=== PATIENT | female | born 1960 | race African-American/Black ===

== ENCOUNTER 2017-12-13 11:53 | Emergency (ER) | payer MEDICAID, OTHER ==
--- NOTE | 2017-12-13 12:08 | ER Document Report ---
ED Medical Screen (RME) - General Chief Complaint: Suicidal Ideation Stated Complaint: SI Time Seen by Provider: 12/13/17 12:07 Mode of Arrival: Ambulatory Information source: Patient Notes: This is a 57-year-old female with a history of bipolar affective disorder/ schizophrenia who presents to the emergency room with depression, thoughts of wanting to hurt herself, lack of energy. Patient's medicines include Risperdal , Benadryl and trazodone. She is a 2 pack per day smoker. She denies a specific plan. TRAVEL OUTSIDE OF THE [place] IN LAST 30 DAYS: No - Related Data Allergies/Adverse Reactions: paliperidone [From Invega] Allergy (Verified 12/13/17 12:02) Past Medical History - Social History Chew tobacco use (# tins/day): No Frequency of alcohol use: Social Drug Abuse: None Renal/ Medical History: Denies: Hx Peritoneal Dialysis Psychiatric Medical History: Reports: Hx Depression, Hx Schizophrenia Past Surgical History: Reports: Hx Section - Immunizations Hx Diphtheria, Pertussis, Tetanus Vaccination: Yes Physical Exam - Vital signs Vitals: Temp Pulse BP Pulse Ox 97.5 F 88 111/64 97 12/13/17 12:04 12/13/17 12:04 12/13/17 12:04 12/13/17 12:04 Course - Vital Signs Vital signs: Temp Pulse Resp BP Pulse Ox 97.5 F 88 111/64 97 12/13/17 12:04 12/13/17 12:04 12/13/17 12:04 12/13/17 12:04
[2017-12-13 12:47] LABS: APPEARANCE,URINE CLEAR; BILIRUBIN,URINE NEGATIVE (NEGATIVE); COLOR,URINE YELLOW; GLUCOSE, URINE NEGATIVE (NEGATIVE); KETONES,URINE NEGATIVE (NEGATIVE); LEUKOCYTE ESTERASE,URINE NEGATIVE (NEGATIVE); NITRITE,URINE NEGATIVE (NEGATIVE); PROTEIN,URINE NEGATIVE (NEGATIVE); URINE SPECIFIC GRAVITY 1.016
[2017-12-13 13:07] LABS: URINE AMPHETAMINES SCREEN NEGATIVE; URINE BARBITURATES SCREEN NEGATIVE; URINE BENZODIAZEPINES SCREEN NEGATIVE; URINE COCAINE SCREEN UNCONFIRMED POSITIVE; URINE MARIJUANA (THC) SCREEN NEGATIVE; URINE METHADONE SCREEN NEGATIVE; URINE PHENCYCLIDINE SCREEN NEGATIVE
[2017-12-13 13:42] LABS: ABSOLUTE EOSINOPHILS # (AUTO) 0.1 10^3/uL (0.0-0.6); ABSOLUTE LYMPHOCYTES (AUTO) 1.5 10^3/uL (0.5-4.7); ABSOLUTE MONOCYTES (AUTO) 0.3 10^3/uL (0.1-1.4); ABSOLUTE NEUT (AUTO) 2.9 10^3/uL (1.7-8.2); BASOPHILS % (AUTO) 0.6 % (0-2); EOSINOPHILS % (AUTO) 1.6 % (0-6); HEMATOCRIT 35.6 % (36.0-47.0); HEMOGLOBIN 11.7 g/dL (12.0-15.5); LYMPHOCYTES % (AUTO) 30.2 % (13-45); MEAN CORPUSCULAR HEMOGLOBIN 23.6 pg (27.0-33.4); MEAN CORPUSCULAR HGB CONC 32.8 g/dL (32.0-36.0); MEAN CORPUSCULAR VOLUME 72 fl (80-97); MONOCYTES % (AUTO) 6.8 % (3-13); PLATELET COUNT 190 10^3/uL (150-450); RED BLOOD COUNT 4.94 10^6/uL (3.72-5.28); SEGMENTED NEUTROPHILS % (AUTO) 60.8 % (42-78); TOTAL CELLS COUNTED % (AUTO) 100 %; WHITE BLOOD COUNT 4.8 10^3/uL (4.0-10.5)
--- NOTE | 2017-12-13 14:01 | ER Document Report ---
ED Psych Disorder / Suicide - General Mode of Arrival: Ambulatory Information source: Patient TRAVEL OUTSIDE OF THE [place] IN LAST 30 DAYS: No <JYOTSNA CORBETT - Last Filed: 12/13/17 13:58> <LARA MOTA - Last Filed: 12/13/17 15:53> <ALEKS OWENS - Last Filed: 12/14/17 17:26> - General Chief Complaint: Suicidal Ideation Stated Complaint: SI Time Seen by Provider: 12/13/17 12:07 Notes: Patient is a 57-year-old female that presents to the emergency department today for complaints of "depression and anxiety". Patient states she lives "all over the place going back and forth" and appears to be homeless. Patient falls asleep almost instantly after responding to any question so history is extremely limited. Patient is uncooperative with exam. (JYOTSNA CORBETT) - Related Data Allergies/Adverse Reactions: paliperidone [From Invega] Allergy (Verified 12/13/17 12:02) Past Medical History - General Information source: Patient - Social History Smoking Status: Current Every Day Smoker Cigarette use (# per day): Yes Chew tobacco use (# tins/day): No Frequency of alcohol use: Social Drug Abuse: Cocaine Family History: Reviewed & Not Pertinent Patient has suicidal ideation: Yes Patient has homicidal ideation: Yes Renal/ Medical History: Denies: Hx Peritoneal Dialysis Psychiatric Medical History: Reports: Hx Depression, Hx Schizophrenia Past Surgical History: Reports: Hx Section - Immunizations Hx Diphtheria, Pertussis, Tetanus Vaccination: Yes Hx Pneumococcal Vaccination: 01/10/15 <JYOTSNA CORBETT - Last Filed: 12/13/17 13:58> Review of Systems - Review of Systems Constitutional: No symptoms reported EENT: No symptoms reported Cardiovascular: No symptoms reported Respiratory: No symptoms reported Gastrointestinal: No symptoms reported Genitourinary: No symptoms reported Female Genitourinary: No symptoms reported Musculoskeletal: No symptoms reported Skin: No symptoms reported Hematologic/Lymphatic: No symptoms reported Neurological/Psychological: See HPI, Depression, Anxiety -: Yes All other systems reviewed and negative <JYOTSNA CORBETT - Last Filed: 12/13/17 13:58> Physical Exam <JYOTSNA CORBETT - Last Filed: 12/13/17 13:58> <LARA MOTA - Last Filed: 12/13/17 15:53> <ALEKS OWENS - Last Filed: 12/14/17 17:26> - Vital signs Vitals: Temp Pulse BP Pulse Ox 97.5 F 88 111/64 97 12/13/17 12:04 12/13/17 12:04 12/13/17 12:04 12/13/17 12:04 - Notes Notes: Physical Exam: General: Alert. HEENT: Normocephalic. Atraumatic. PERRL. Extraocular movements intact. Oropharynx clear. Neck: Supple. Non-tender. Respiratory: No respiratory distress. Clear and equal breath sounds bilaterally. Cardiovascular: Regular rate and rhythm. Abdominal: Normal Inspection. Non-tender. No distension. Normal Bowel Sounds. Back: Non-tender. No deformity or step off. Extremities: Moves all four extremities. Upper extremities: Normal inspection. Normal ROM. Lower extremities: Normal inspection. No edema. Normal ROM. Neurological: Normal cognition. AAOx4. Normal speech. Psychological: Normal affect. Normal Mood. Skin: Warm. Dry. Normal color. (JYOTSNA CORBETT) Course - Laboratory Result Diagrams: 12/13/17 13:20 12/13/17 13:20 <JYOTSNA CORBETT - Last Filed: 12/13/17 13:58> - Laboratory Result Diagrams: 12/13/17 13:20 12/13/17 13:20 <LARA MOTA - Last Filed: 12/13/17 15:53> - Laboratory Result Diagrams: 12/13/17 13:20 12/13/17 13:20 <ALEKS OWENS - Last Filed: 12/14/17 17:26> - Vital Signs Vital signs: Temp Pulse Resp BP Pulse Ox 98.1 F 76 18 110/60 100 12/14/17 16:15 12/14/17 16:15 12/14/17 16:15 12/14/17 16:15 12/14/17 16:15 - Laboratory Laboratory results interpreted by az: 12/13/17 12/13/17 12/13/17 12:28 13:20 13:20 Hgb 11.7 L Hct 35.6 L MCV 72 L MCH 23.6 L RDW 16.0 H Urine Urobilinogen 2.0 H Salicylates < 1.0 L Acetaminophen < 10 L Discharge <JYOTSNA CORBETT - Last Filed: 12/13/17 13:58> <LARA MOTA - Last Filed: 12/13/17 15:53> <ALEKS OWENS - Last Filed: 12/14/17 17:26> - Discharge Clinical Impression: Suicidal ideation, Homicidal ideation, Cocaine abuse Depression Qualifiers: Depression Type: unspecified Qualified Code(s): F32.9 - Major depressive disorder, single episode, unspecified Schizophrenia Qualifiers: Schizophrenia type: unspecified Qualified Code(s): F20.9 - Schizophrenia, unspecified Bipolar disorder Qualifiers: Active/Remission status: remission status unspecified Qualified Code(s): F31.9 - Bipolar disorder, unspecified Condition: Stable Disposition: HOME, SELF-CARE Additional Instructions: Bipolar Disorder Bipolar disorder is also called manic-depressive disorder. Depression alternates with brain hyperactivity called elena. Each phase lasts from several days to a few weeks. We don't know exactly what causes bipolar disorder , but it's treatable. During the "manic phase," you may feel elated and energetic. You may have racing thoughts, rapid speech, increased activity, and grandiose ideas. During this time, you may not realize how poor your judgement is. Inappropriate spending, drug abuse, excessive alcohol use, marriage problems, and irresponsible sexual behavior are common during the manic phase. During the "depressive phase," you might feel depressed, guilty, worthless , fatigued, and unable to concentrate. You might have thoughts of suicide. Good treatments are available for bipolar disorder. [place] is a classic drug for bipolar disorder, and is still often useful. If the manic phase is very mild, an antidepressant alone can be prescribed. If the manic phase is very severe, an antipsychotic medicine (such as Haldol) may be needed. The treatment must be matched to your symptoms, so it's important to work closely with your psychiatric care provider. Contact your physician, the hospital emergency center, crisis line, or your counsellor if you are losing control or having self-destructive thoughts. Schizophrenia Schizophrenia is a chemical disorder that affects how the brain functions. The exact cause is unknown, but it tends to run in families. It is NOT caused by emotional trauma. Schizophrenia causes disordered thinking, including unusual beliefs and inability to "process" happenings around the patient. Patients with schizophrenia benefit greatly from medicine. These medicines are called antipsychotics. Never stop the medicine without the doctor 's approval. Counselling may help the patient deal with his disease. Schizophrenics require a very ordered environment. Stresses and sudden changes may bring out symptoms. Drugs and alcohol abuse may become problems. Contact the counsellor or crisis line if there are thoughts of suicide or of harming others, or if you become aware of unusual thoughts or beliefs Cocaine Abuse Cocaine causes many dangerous medical problems. Problems can occur even with "usual" amounts. Cocaine affects judgement, creating a sense of invulnerability. Cocaine users often make bad decisions that seem "great" at the time. Most cocaine users eventually will be hurt by bad job performance, damaged personal relations, crime, and unsafe sexual practices. Toxic effects of cocaine can include seizures, hallucinations, delusions, high blood pressure, heart damage, or sudden . There's always the risk of a "bad batch." But heart attacks, brain hemorrhages, or cardiac arrest can occur unpredictably even with "normal" use. Injection of cocaine is risky for abscesses, endocarditis (heart infection) , pneumonia, and AIDS. Withdrawal from cocaine often causes anxiety and drug cravings. Some users become paranoid and psychotic. Many treatment programs are available, but you must make the decision to quit. Medication can be prescribed to control the symptoms of cocaine toxicity (beta blockers or benzodiazepines). Withdrawal symptoms may require tranquilizers. CHRONIC ALCOHOLISM and ALCOHOL ABUSE: Your evaluation reveals evidence of chronic alcoholism, an addiction to alcohol. The tendency to alcoholism may be inherited. Chronic use of alcohol weakens muscles, causes fatty deposits in the liver , damages the stomach, makes you more prone to infections, and can cause defects in unborn children. In the long run, brain atrophy and cirrhosis of the liver result. You are also at greater risk for certain types of cancer, such as cancer of the mouth, throat, stomach, and liver. Counselling services are available to help you. In-hospital treatment programs often help. Support groups such as Alcoholics Anonymous can be very useful in beating this addiction. Your physician can make a referral for you. As alcoholics often are prone to other addictions, you should discuss your use of any other medications with the doctor. SUICIDAL IDEATION: Suicidal ideation is a common medical term for thoughts about suicide, which may be as detailed as a formulated plan, without the suicidal act itself. Although most people who undergo suicidal ideation do not commit suicide, some go on to make suicide attempts. The range of suicidal ideation varies greatly from fleeting to detailed planning, role playing, and unsuccessful attempts. While thoughts about suicide are common, most people do not carry out serious actions to commit suicide. Based upon your evaluation and discussion with you, we do not believe you are currently at risk to act upon your thoughts of suicide. You have agreed to return to the Emergency Department, at any time , if you feel inclined to act upon your suicidal thoughts. FOLLOW-UP CARE: You have been provided with the outpatient mental health resource sheet which highlighted the [facility] mobile crisis number for talk therapy , crisis services and voluntary substance abuse detoxification/rehabilitation treatment. It is recommended you seek voluntary treatment for dual diagnosis ( mental health and substance abuse) first inpatient then ongoing outpatient. If you experience worsening or a significant change in your symptoms, notify the physician immediately or return to the Emergency Department at any time for re- evaluation. Referrals: [facility] [Provider Group] - Follow up as needed Scribe Attestation: 12/13/17 14:14 I personally performed the services described in the documentation, reviewed and edited the documentation which was dictated to the scribe in my presence, and it accurately records my words and actions. (LARA MOTA) Scribe Documentation - Scribe Written by Samara:: Samara Nguyen, 12/13/2017 1401 acting as scribe for :: Luisa <JYOTSNA CORBETT - Last Filed: 12/13/17 13:58>
[2017-12-13 14:02] LABS: ALANINE AMINOTRANSFERASE 24 U/L (9-52); ALBUMIN 3.6 g/dL (3.5-5.0); ALCOHOL 11 mg/dL (NONE DETECTED); ALKALINE PHOSPHATASE 78 U/L (38-126); ANION GAP 11 (5-19); ASPARTATE AMINO TRANSFERASE 21 U/L (14-36); BILIRUBIN,DIRECT 0.3 mg/dL (0.0-0.4); BILIRUBIN,TOTAL 0.4 mg/dL (0.2-1.3); BLOOD UREA NITROGEN 10 mg/dL (7-20); CALCIUM 8.9 mg/dL (8.4-10.2); CARBON DIOXIDE 25 mmol/L (22-30); CHLORIDE 107 mmol/L (98-107); GLUCOSE 102 mg/dL (75-110); POTASSIUM 4.1 mmol/L (3.6-5.0); SODIUM 143.1 mmol/L (137-145); TOTAL PROTEIN 6.7 g/dL (6.3-8.2)
[2017-12-13 14:04] LABS: ACETAMINOPHEN < 10 ug/mL (10-30); SALICYLATE < 1.0 mg/dL (2.0-20.0)
--- NOTE | 2017-12-13 16:27 | PSYCHOLOGICAL NOTE ---
Psych Note - Psych Note Psych Note: Reason for Consult: suicidal and homicidal ideation pt was brought to the ED by EMS for suicidal and homicidal ideations. pt was picked up at [facility] after pt asked a staff member to call. Patient is noted to be sleeping upon entry to the room. Patient was able to wake and say she came to [facility] ED because she was "walking in the sun... It so hot... I got sick." Patient was noted to state that when asked if she had somewhere to stay she stated "back... Fourth... Get hotel room." When patient is asked what she has in her hair she said "red paint." When patient was asked that she had thoughts of hurting herself she stated "yes" however fell into unintelligible mumbling. Clinician was unable to understand or determine if the patient had a plan. Patient is semi-alert and orientated to person and place. Clinician notes patient needed to be awoken repeatedly would only give a 1 or 2 word answer and then fall back asleep again. Clinician observed the patient has what appears to be red paint smeared in her hair and across her eyelids. Patient endorsed suicidal and homicidal ideation prior to arrival to [facility] however once arrived patient kept falling asleep during evaluation and is unclear. Bizarre behavior is noted with red paint in her hair and on her eyelids however she did not voice any delusional thought processes. Once again, clinician notes patient minimally engaged in evaluation is incomplete. No medication recommendations at this time 296.9 (F31.10) Unspecified Bipolar and Related Disorder, per history Impression/plan: Patient is recommended for [facility] petition for overnight mental health hold. Patient presented for suicidal and homicidal ideation. Patient appears to be under the influence or coming down. Patient has significant difficulties conducting an organized and linear conversation, she continually falls asleep and only answers with one word before dissolving to mumbling and falling asleep again. Patient will be evaluated once she is alert and orientated. Dr. Stout was consulted on the care and management of this patient, attending physician is in agreement with recommendations and disposition.
--- NOTE | 2017-12-13 17:14 | EKG REPORT ---
SEVERITY:- OTHERWISE NORMAL ECG - SINUS RHYTHM VENTRICULAR PREMATURE COMPLEX : Confirmed by: Sanket Cerrato MD 13-Dec-2017 17:14:13
--- NOTE | 2017-12-14 09:20 | ER Document Report ---
Doctor's Note Notes: 12/14/17 09:51 This is a 57-year-old male with long-standing history of substance abuse as well as depression, schizophrenia and bipolar affective disorder. Presented here with SI and HI tendencies. Mental health will need to repeat evaluation today. We will continue to follow recommendations by mental health. Nothing further at this time. Patient remained stable. Will continue to follow. 12/14/17 17:57 Patient is clear at this time. Does have a substance abuse history. States that she does not have any more thoughts of wanting to hurt herself or others. A friend is going to meet her "at the mall". Mental health has evaluated and we find nothing further to keep her at this time. Patient was able to speak in clear train of thought and talk to me at length about the bills that she needed to go home and pay. States that she got really drunk last night and probably smoked some crack among other things but she does not really remember. States that the voices are no longer here. Will discharge at this time. Discharge - Discharge Clinical Impression: Suicidal ideation, Homicidal ideation, Cocaine abuse Depression Qualifiers: Depression Type: unspecified Qualified Code(s): F32.9 - Major depressive disorder, single episode, unspecified Schizophrenia Qualifiers: Schizophrenia type: unspecified Qualified Code(s): F20.9 - Schizophrenia, unspecified Bipolar disorder Qualifiers: Active/Remission status: remission status unspecified Qualified Code(s): F31.9 - Bipolar disorder, unspecified Condition: Stable Disposition: HOME, SELF-CARE Additional Instructions: Bipolar Disorder Bipolar disorder is also called manic-depressive disorder. Depression alternates with brain hyperactivity called elena. Each phase lasts from several days to a few weeks. We don't know exactly what causes bipolar disorder , but it's treatable. During the "manic phase," you may feel elated and energetic. You may have racing thoughts, rapid speech, increased activity, and grandiose ideas. During this time, you may not realize how poor your judgement is. Inappropriate spending, drug abuse, excessive alcohol use, marriage problems, and irresponsible sexual behavior are common during the manic phase. During the "depressive phase," you might feel depressed, guilty, worthless , fatigued, and unable to concentrate. You might have thoughts of suicide. Good treatments are available for bipolar disorder. [place] is a classic drug for bipolar disorder, and is still often useful. If the manic phase is very mild, an antidepressant alone can be prescribed. If the manic phase is very severe, an antipsychotic medicine (such as Haldol) may be needed. The treatment must be matched to your symptoms, so it's important to work closely with your psychiatric care provider. Contact your physician, the hospital emergency center, crisis line, or your counsellor if you are losing control or having self-destructive thoughts. Schizophrenia Schizophrenia is a chemical disorder that affects how the brain functions. The exact cause is unknown, but it tends to run in families. It is NOT caused by emotional trauma. Schizophrenia causes disordered thinking, including unusual beliefs and inability to "process" happenings around the patient. Patients with schizophrenia benefit greatly from medicine. These medicines are called antipsychotics. Never stop the medicine without the doctor 's approval. Counselling may help the patient deal with his disease. Schizophrenics require a very ordered environment. Stresses and sudden changes may bring out symptoms. Drugs and alcohol abuse may become problems. Contact the counsellor or crisis line if there are thoughts of suicide or of harming others, or if you become aware of unusual thoughts or beliefs Cocaine Abuse Cocaine causes many dangerous medical problems. Problems can occur even with "usual" amounts. Cocaine affects judgement, creating a sense of invulnerability. Cocaine users often make bad decisions that seem "great" at the time. Most cocaine users eventually will be hurt by bad job performance, damaged personal relations, crime, and unsafe sexual practices. Toxic effects of cocaine can include seizures, hallucinations, delusions, high blood pressure, heart damage, or sudden . There's always the risk of a "bad batch." But heart attacks, brain hemorrhages, or cardiac arrest can occur unpredictably even with "normal" use. Injection of cocaine is risky for abscesses, endocarditis (heart infection) , pneumonia, and AIDS. Withdrawal from cocaine often causes anxiety and drug cravings. Some users become paranoid and psychotic. Many treatment programs are available, but you must make the decision to quit. Medication can be prescribed to control the symptoms of cocaine toxicity (beta blockers or benzodiazepines). Withdrawal symptoms may require tranquilizers. CHRONIC ALCOHOLISM and ALCOHOL ABUSE: Your evaluation reveals evidence of chronic alcoholism, an addiction to alcohol. The tendency to alcoholism may be inherited. Chronic use of alcohol weakens muscles, causes fatty deposits in the liver , damages the stomach, makes you more prone to infections, and can cause defects in unborn children. In the long run, brain atrophy and cirrhosis of the liver result. You are also at greater risk for certain types of cancer, such as cancer of the mouth, throat, stomach, and liver. Counselling services are available to help you. In-hospital treatment programs often help. Support groups such as Alcoholics Anonymous can be very useful in beating this addiction. Your physician can make a referral for you. As alcoholics often are prone to other addictions, you should discuss your use of any other medications with the doctor. SUICIDAL IDEATION: Suicidal ideation is a common medical term for thoughts about suicide, which may be as detailed as a formulated plan, without the suicidal act itself. Although most people who undergo suicidal ideation do not commit suicide, some go on to make suicide attempts. The range of suicidal ideation varies greatly from fleeting to detailed planning, role playing, and unsuccessful attempts. While thoughts about suicide are common, most people do not carry out serious actions to commit suicide. Based upon your evaluation and discussion with you, we do not believe you are currently at risk to act upon your thoughts of suicide. You have agreed to return to the Emergency Department, at any time , if you feel inclined to act upon your suicidal thoughts. FOLLOW-UP CARE: You have been provided with the outpatient mental health resource sheet which highlighted the [facility] mobile crisis number for talk therapy , crisis services and voluntary substance abuse detoxification/rehabilitation treatment. It is recommended you seek voluntary treatment for dual diagnosis ( mental health and substance abuse) first inpatient then ongoing outpatient. If you experience worsening or a significant change in your symptoms, notify the physician immediately or return to the Emergency Department at any time for re- evaluation. Referrals: [facility] [Provider Group] - Follow up as needed Scribe Attestation: 12/13/17 14:14 I personally performed the services described in the documentation, reviewed and edited the documentation which was dictated to the scribe in my presence, and it accurately records my words and actions.
[2017-12-14 16:15] VITALS: BP 110/60
--- NOTE | 2017-12-14 19:57 | PSYCHOLOGICAL NOTE ---
Psych Note - Psych Note Psych Note: Reason for Consult: suicidal and homicidal ideation Contact Permissions: She mentioned her [employer] Jo Guzmán [phone] ( later [facility] Behavior[facility] Health Bacteriology Technician found out this was her payee), She was able to immediately get ahold of a friend for transportation (resourcefulness) Patient is a 57 year old female in the ED on a 24 Hour IVC Petition for telling EMS she was suicidal and homicidal. Her UDS was positive for Cocaine and she had a Serum Alcohol Level of 11 upon arrival to the ED. Today patient stated "I am not doing good" when asked how she was doing. She stated "I am hearing voices a little bit." when asked what they were saying patient said "I can't make it out." She said it's not the first time she has heard voices. She denied regular use of Cocaine and commented "it was a Holiday, I was out with friends, I don't know what I had, it was the first time." She admitted to "drinking a lot of beer daily and smoking a lot of cigarettes." She stated "yeah I have a problem with it sometimes, I want help to stop drinking, but not now someone needs to call the deputy clerk of courts to find out when my court date is since it's coming up for panhandling after asking for money, apparently you can't do that, and I have a dentist appointment Wednesday to get my teeth (smiled and showed most of her teeth had been removed)." She identified she has diagnoses of Schizophrenia, Bipolar and hearing voices. She stated she gets a Risperdal 25MG injection, Benadryl and B12. She at first denied SI by saying "no" then said "yeah I want to hurt myself, I feel bad, give me my medicine." When asked why she doesn't get her medicine from her doctor she said "I had been homeless, am staying with my sister in a hotel now, so would just go around getting my medicine from the hospitals where I stay (mentioned [place], [place], [place], [place])." It was explained she would not be getting medications in the ED since she needs to see an ongoing psychiatric provider for that. Patient was alert and oriented to person, place, time and situation. Mood was euthymic with congruent affect. She denied current SI/HI then tried to say yes to SI in order to get medication which she admitted she gets from EDs. She did not express plan or intent. She also talked about needing to go to her dentist and finding out her court date this month which shows future/goal oriented thinking. She did not appear to be responding to internal stimuli (though she noted hearing voices a little bit which she could not make out what they were saying) as evidenced by fair eye contact, answering questions appropriately when addressed, and her ability to express her needs and wants. Thought processes were linear and organized (again suggesting no psychosis). Conversational speech was within normal limits for rate, tone and prosody. Intellectual abilities are estimated to be average. Insight, judgment and impulse control were fair as evidenced by wanting to know her court date, wanting to make sure she gets to her dentist appointment at the end of the week and trying to get medication (though not at the appropriate place). Overheard patient on the phone with her friend and patient said "yeah I can meet you." She then said her friend drives from 30 minutes away so they would meet at the mall. Diagnosis: 296.9 (F31.10) Unspecified Bipolar and Related Disorder by history Impression/Plan: Patient is cleared from acute psychiatric services. Recommendation to rescind 24 Hour IVC Petition. She was inconsistent with SI ( said no, then yeah want to hurt self/feel bad/would not if she got pills, specifically psych meds she says she gets from going to hospitals since she moves around often, and no plan identified) but then went on to talk about having a dentist appointment Wednesday that she cannot miss and needing to find out when her court date is for panhandling (these show future/goal oriented thinking). She denied HI. There was no observed psychosis, patient reported hearing voices "a little bit but not being able to make out what they were saying." She was able to answer questions when addressed and express wants and needs therefore her psychosis did not seem to interfere with everyday interactions. She had a chance to sober up from alcohol and cocaine. She stated she had a problem drinking but did not want help until after dentist appointment and court date. Patient contacted a friend who patient said would pick her up from the mall. Patient provided with the outpatient resource sheet which highlighted IFS MCM for talk therapy, crisis services and voluntary SA detox/rehab placement. Consulted with Dr. Stout regarding the management and care of patient. ED Physician in agreement with recommendations.
== END 2017-12-14 18:05 | disposition home or self-care (01) ==
LOC: ER 11:53
DX: F20.9 Schizophrenia, unspecified (principal); F31.9 Bipolar disorder, unspecified; F17.210 Nicotine dependence, cigarettes, uncomplicated
CPT/HCPCS: 36415; 80053; 80307; 81001; 85025; 93005; 93010; 99285

== ENCOUNTER 2018-01-20 01:38 | Emergency (ER) | payer MEDICAID, OTHER ==
[2018-01-20] MEDS ORDERED: RISPERIDONE MICROSPHERES INJ 50 MG/2 ML KIT IM ONE (01:52)
--- NOTE | 2018-01-20 01:56 | ER Document Report ---
ED General - General Stated Complaint: PSYCH EVAL Time Seen by Provider: 01/20/18 01:51 Notes: Patient is a 57-year-old female with a history of schizophrenia and bipolar. She is actually well-known to me as I used to care for frequently when I worked at [facility] in [place]. She is homeless. She says she goes back and forth between [place] and [place]. She says that she has been without her medications now for some time and feels unwell. She usually takes Zoloft. She also receives the Risperdal Concerta shot every 2 weeks. She says is been well over 2 weeks since she has had this. She gets 50 mg every 2 weeks. She says since it has been more than 2 weeks she is having hallucinations and feels unwell. She denies fevers. No vomiting. No diarrhea. No other complaints at this time. Patient says she does drink alcohol. She drinks about 1 or 2 drinks a day. She denies using cocaine anymore. TRAVEL OUTSIDE OF THE [place] IN LAST 30 DAYS: No - Related Data Allergies/Adverse Reactions: paliperidone [From [facility]] Allergy (Verified 12/13/17 12:02) Past Medical History - Social History Smoking Status: Current Every Day Smoker Frequency of alcohol use: Occasional Drug Abuse: None Family History: Reviewed & Not Pertinent Renal/ Medical History: Denies: Hx Peritoneal Dialysis Psychiatric Medical History: Reports: Hx Depression, Hx Schizophrenia Past Surgical History: Reports: Hx Section - Immunizations Hx Diphtheria, Pertussis, Tetanus Vaccination: Yes Hx Pneumococcal Vaccination: 01/10/15 Review of Systems - Review of Systems Notes: My Normal Review Basic REVIEW OF SYSTEMS: CONSTITUTIONAL : Denies fever, chills, or sweats. Denies recent illness. EENT: Denies eye, ear, throat, or mouth pain or symptoms. Denies nasal or sinus congestion. RESPIRATORY: Denies cough, cold, or chest congestion. Denies shortness of breath, difficulty breathing, or wheezing. GASTROINTESTINAL: Denies abdominal pain. Denies nausea, vomiting, or diarrhea. GENITOURINARY: Denies difficulty urinating, painful urination, burning, frequency, or blood in urine. MUSCULOSKELETAL: Denies neck or back pain or joint pain or swelling. SKIN: Denies rash or skin lesions. NEUROLOGICAL: Denies altered mental status or loss of consciousness. Denies headache. Denies weakness or paralysis or loss of use of either side. Denies problems with gait or speech. Denies sensory or motor loss. PSYCHIATRIC: Hallucinations. Depression. ALL OTHER SYSTEMS REVIEWED AND NEGATIVE. Physical Exam - Vital signs Vitals: Temp Pulse Resp BP Pulse Ox 97.5 F 76 16 113/66 96 01/20/18 01:52 01/20/18 01:52 01/20/18 01:52 01/20/18 01:52 01/20/18 01:52 - Notes Notes: General Appearance: Well nourished, alert, cooperative, no acute distress, no obvious discomfort. Vitals: reviewed, See vital signs table. Head: no swelling or tenderness to the head Eyes: PERRL, EOMI, Conjuctiva clear Mouth: No decreasd moisture Lungs: No wheezing, No rales, No rhonci, No accessory muscle use, good air exchange bilaterally. Heart: Normal rate, Regular rythm, No murmur, no rub Abdomen: Normal BS, soft, No rigidity, No abdominal tenderness, No guarding, no rebound, no abdominal masses, no organomegaly Extremities: strength 5/5 in all extremities, good pulses in all extremities, no swelling or tenderness in the extremities, no edema. Skin: warm, dry, appropriate color, no rash Neuro: speech clear, oriented x 3, normal affect, responds appropriately to questions. Course - Re-evaluation Re-evalutation: 01/20/18 02:25 EKG is reviewed and interpreted by me. EKG shows sinus rhythm with a rate of [address] bpm. Occasional [address]. No [address] segment elevation or depression. No ischemic T wave inversions. HI interval, QRS duration are within normal range. QT interval is prolonged. Old EKG for comparison is from the December 13, 2017. 01/20/18 02:29 I ordered the Risperdal consta ahot as this usually works well for this patient. Even though it is in [place] we actually do not carry at this hospital according to the nursing shearing supervisor. I therefore will have to cancel the order. 01/20/18 03:39 Patient is medically stable for psychiatric evaluation. - Vital Signs Vital signs: Temp Pulse Resp BP Pulse Ox 97.5 F 76 16 113/66 96 01/20/18 01:52 01/20/18 01:52 01/20/18 01:52 01/20/18 01:52 01/20/18 01:52 - Laboratory Result Diagrams: 01/20/18 02:08 01/20/18 02:08 Laboratory results interpreted by me: 01/20/18 01/20/18 01/20/18 02:00 02:08 02:08 MCV 70 L MCH 23.1 L RDW 14.3 H Glucose 115 H Urine Urobilinogen 2.0 H Salicylates < 1.0 L Acetaminophen < 10 L Discharge - Discharge Clinical Impression: Cocaine abuse, Hallucinations Schizophrenia Qualifiers: Schizophrenia type: unspecified Qualified Code(s): F20.9 - Schizophrenia, unspecified Condition: Stable Disposition: PSYCH HOSP/UNIT
[2018-01-20 02:18] LABS: ABSOLUTE EOSINOPHILS # (AUTO) 0.1 10^3/uL (0.0-0.6); ABSOLUTE LYMPHOCYTES (AUTO) 2.3 10^3/uL (0.5-4.7); ABSOLUTE MONOCYTES (AUTO) 0.3 10^3/uL (0.1-1.4); ABSOLUTE NEUT (AUTO) 4.1 10^3/uL (1.7-8.2); BASOPHILS % (AUTO) 0.3 % (0-2); EOSINOPHILS % (AUTO) 1.6 % (0-6); HEMATOCRIT 36.9 % (36.0-47.0); HEMOGLOBIN 12.2 g/dL (12.0-15.5); LYMPHOCYTES % (AUTO) 33.1 % (13-45); MEAN CORPUSCULAR HEMOGLOBIN 23.1 pg (27.0-33.4); MEAN CORPUSCULAR VOLUME 70 fl (80-97); PLATELET COUNT 224 10^3/uL (150-450); RED BLOOD COUNT 5.26 10^6/uL (3.72-5.28); RED CELL DISTRIBUTION WIDTH 14.3 % (11.5-14.0); TOTAL CELLS COUNTED % (AUTO) 100 %; WHITE BLOOD COUNT 6.9 10^3/uL (4.0-10.5)
[2018-01-20 02:30] LABS: ALANINE AMINOTRANSFERASE 39 U/L (9-52); ALCOHOL 51 mg/dL (NONE DETECTED); ALKALINE PHOSPHATASE 75 U/L (38-126); ANION GAP 14 (5-19); ASPARTATE AMINO TRANSFERASE 30 U/L (14-36); BILIRUBIN,DIRECT 0.1 mg/dL (0.0-0.4); BILIRUBIN,TOTAL 0.6 mg/dL (0.2-1.3); BLOOD UREA NITROGEN 8 mg/dL (7-20); CALCIUM 8.9 mg/dL (8.4-10.2); CARBON DIOXIDE 23 mmol/L (22-30); CHLORIDE 103 mmol/L (98-107); GLUCOSE 115 mg/dL (75-110); POTASSIUM 3.7 mmol/L (3.6-5.0); SODIUM 139.6 mmol/L (137-145); TOTAL PROTEIN 7.4 g/dL (6.3-8.2)
[2018-01-20 02:31] LABS: ACETAMINOPHEN < 10 ug/mL (10-30); SALICYLATE < 1.0 mg/dL (2.0-20.0)
[2018-01-20 02:45] LABS: APPEARANCE,URINE SLIGHTLY-CLOUDY; BILIRUBIN,URINE NEGATIVE (NEGATIVE); COLOR,URINE YELLOW; GLUCOSE, URINE NEGATIVE (NEGATIVE); KETONES,URINE NEGATIVE (NEGATIVE); LEUKOCYTE ESTERASE,URINE NEGATIVE (NEGATIVE); NITRITE,URINE NEGATIVE (NEGATIVE); PROTEIN,URINE NEGATIVE (NEGATIVE); URINE SPECIFIC GRAVITY 1.015
[2018-01-20 02:57] LABS: URINE AMPHETAMINES SCREEN NEGATIVE; URINE BARBITURATES SCREEN NEGATIVE; URINE BENZODIAZEPINES SCREEN NEGATIVE; URINE COCAINE SCREEN UNCONFIRMED POSITIVE; URINE MARIJUANA (THC) SCREEN NEGATIVE; URINE METHADONE SCREEN NEGATIVE; URINE PHENCYCLIDINE SCREEN NEGATIVE
--- NOTE | 2018-01-20 06:46 | EKG REPORT ---
SEVERITY:- BORDERLINE ECG - SINUS RHYTHM VENTRICULAR PREMATURE COMPLEX BORDERLINE PROLONGED QT INTERVAL : Confirmed by: Kari Porter MD 20-Jan-2018 06:45:46
--- NOTE | 2018-01-20 08:45 | PSYCHOLOGICAL NOTE ---
Psych Note - Psych Note Psych Note: Reason for Consult: medication refill Patient is a 57-year-old female with a history of schizophrenia and bipolar. Patient reports that she is doing well but however she feels that she may have a chest cold and was hoping to get something for her cough. She confirms that she normally gets a Risperdal shot and is overdue for it and has not taken her Zoloft in a few months. Patient discloses that she has Medicaid coverage [facility] When asked to her outpatient mental health providers she reports that she goes to [facility] in [place] and does have an appointment on Wednesday. Patient disclosed she does not want assistance in sobriety from cocaine and alcohol. She denies any thoughts of wanting to harm herself or others. Clinician explained that the hospital does not carry her medication of a long-acting Risperdal shot. She confirms that she will follow-up with [facility] on Wednesday to get her medication. Patient then asked when breakfast would be; clinician show the patient her food was in the room for her now (patient was awaked for evaluation and did not see the breakfast tray). Patient was alert and oriented to person, place, time and situation. Mood was euthymic with congruent affect. She denied current suicidal and homicidal ideation. Patient is not demonstrating any behaviours indicating she is responding to internal stimuli as evidenced by fair eye contact, answering questions appropriately when addressed, and her ability to express her needs and wants. Thought processes were linear and organized (again suggesting no psychosis). Conversational speech was within normal limits for rate, tone and prosody. Intellectual abilities are estimated to be average. attention and concentration are fair. Insight, judgment and impulse control were fair. no medication recommendations at this time Diagnosis: 296.9 (F31.10) Unspecified Bipolar and Related Disorder by history Impression/Plan: Patient is cleared from acute psychiatric services. Patient does not meet IVC criteria per [place] GS 122C. She is not demonstrating any behaviors indicating she is responding to internal stimuli i.e. she makes good eye contact, she has normal conversational speech, and has linear and organized thought processes. Patient is able to verbalize very clearly she has an appointment on Wednesday with her outpatient mental health provider and confirms she will follow up with for her medications as [facility] does not carry a long acting Risperdal shot. Patient declines assistance for sobriety from alcohol and cocaine; this is a long-standing addiction for this patient. It is also noted the patient is homeless in travels between [place] and [place]. Clinician notes patient appears to have paint both in her hair and over her eyelids, as if it was eye shadow. This is a frequent occurrence as the patient has been seen on multiple occasions and appears to be her baseline physical presentation. When asked she reports that she paints her hair to dye it and reports she wears it as makeup. Dr. Stout was consulted on the care and management of this patient; attending physician is in agreement with recommendations.
[2018-01-20 10:23] VITALS: BP 115/63
== END 2018-01-20 10:23 | disposition home or self-care (01) ==
LOC: ER 01:38
DX: F20.9 Schizophrenia, unspecified (principal); F14.10 Cocaine abuse, uncomplicated; Z59.0 Homelessness; Z79.899 Other long term (current) drug therapy; F17.200 Nicotine dependence, unspecified, uncomplicated
CPT/HCPCS: 36415; 80053; 80307; 81001; 85025; 93005; 93010; 99285

== ENCOUNTER 2018-03-30 21:23 | Emergency (ER) | payer MEDICAID ==
[2018-03-30 21:31] VITALS: BP 114/72
[2018-03-30] MEDS ORDERED: RISPERIDONE 1 MG TABLET PO ONE (22:03)
--- NOTE | 2018-03-30 22:06 | ER Document Report ---
ED General - General Chief Complaint: Medication Refill Stated Complaint: MED REFILL Time Seen by Provider: 03/30/18 21:56 Notes: Ms. Moreno she is a 58-year-old female well-known to me who has a history of schizophrenia who is supposed to get a long-acting Risperdal shot every 2 weeks. She says is now been 2 weeks since she has had her shot and she needs another one. I have told her in the past we unfortunately do not carry this shot here at this ER. When I see her at [facility] used to go there frequently for the shot. She says she came to town today and plans on going back tomorrow. She is followed by [facility] in [place]. She sometimes gets her shots there but when she misses her appointments she goes to an ER for the injection. She denies any thoughts of suicide. She requests to spend the night in the ER as she did not make it to the homeless group home in time. TRAVEL OUTSIDE OF THE [place] IN LAST 30 DAYS: No - Related Data Allergies/Adverse Reactions: paliperidone [From [facility]] Allergy (Verified 12/13/17 12:02) Past Medical History - Social History Smoking Status: Never Smoker Frequency of alcohol use: Occasional Drug Abuse: Cocaine Family History: Reviewed & Not Pertinent Renal/ Medical History: Denies: Hx Peritoneal Dialysis Psychiatric Medical History: Reports: Hx Depression, Hx Schizophrenia Past Surgical History: Reports: Hx Section - Immunizations Hx Diphtheria, Pertussis, Tetanus Vaccination: Yes Hx Pneumococcal Vaccination: 01/10/15 Review of Systems - Review of Systems Notes: My Normal Review Basic REVIEW OF SYSTEMS: CONSTITUTIONAL : Denies fever, chills, or sweats. Denies recent illness. EENT: Denies eye, ear, throat, or mouth pain or symptoms. Denies nasal or sinus congestion. RESPIRATORY: Denies cough, cold, or chest congestion. Denies shortness of breath, difficulty breathing, or wheezing. GASTROINTESTINAL: Denies abdominal pain. Denies nausea, vomiting, or diarrhea. MUSCULOSKELETAL: Denies neck or back pain or joint pain or swelling. SKIN: Denies rash or skin lesions. NEUROLOGICAL: Denies altered mental status or loss of consciousness. Denies headache. Denies weakness or paralysis or loss of use of either side. Denies problems with gait or speech. Denies sensory or motor loss. PSYCHIATRIC: Chronic depression. No suicidal thoughts. History of schizophrenia. ALL OTHER SYSTEMS REVIEWED AND NEGATIVE. Physical Exam - Vital signs Vitals: Temp Pulse Resp BP Pulse Ox 98.0 F 86 17 114/72 96 03/30/18 21:30 03/30/18 21:30 03/30/18 21:30 03/30/18 21:30 03/30/18 21:30 - Notes Notes: General Appearance: Well nourished, alert, cooperative, no acute distress, no obvious discomfort. Well-appearing. Vitals: reviewed, See vital signs table. Head: no swelling or tenderness to the head Eyes: PERRL, EOMI, Conjuctiva clear Mouth: No decreasd moisture Lungs: No wheezing, No rales, No rhonci, No accessory muscle use, good air exchange bilaterally. Heart: Normal rate, Regular rythm, No murmur, no rub Skin: Some black paint on hands. Neuro: speech clear, oriented x 3, normal affect, responds appropriately to questions. Psychiatric: Patient is a good thought process and is able to answer questions appropriate. She does not appear to be actively hallucinating. She does not have any tangential thought process on exam. Her thoughts seem linear and clear. Course - Re-evaluation Re-evalutation: 03/31/18 00:51 We will give the patient dose of her wrist but I will write a prescription for spelled tablets until she can get into [facility] to get her shot. I informed her that unfortunately cannot let her stay the night in the ER as we did have to keep the beds open for sick patients that are waiting in the waiting room. I informed her to try to contact homeless group home or her friends that live in this area. She has told me the past that she does have friends in this area. We will discharge patient home at this time but encouraged her return to ER if she has any worsening of her symptoms. Dictation of this chart was performed using voice recognition software; therefore, there may be some unintended grammatical errors. - Vital Signs Vital signs: Temp Pulse Resp BP Pulse Ox 98.0 F 86 17 114/72 96 03/30/18 21:30 03/30/18 21:30 03/30/18 21:30 03/30/18 21:30 03/30/18 21:30 Discharge - Discharge Clinical Impression: Schizophrenia Qualifiers: Schizophrenia type: unspecified Qualified Code(s): F20.9 - Schizophrenia, unspecified Condition: Good Disposition: HOME, SELF-CARE Additional Instructions: Please take the Risperdal as prescribed until you follow up closely with your doctor at [facility] in [place]. Please do not skip your dosages. Return to the ER if you feel that you are worsening in any way. Prescriptions: Risperidone [Risperdal 1 mg Tablet] 1 mg PO DAILY #7 tablet
== END 2018-03-30 22:18 | disposition home or self-care (01) ==
LOC: ER 21:23
DX: F20.9 Schizophrenia, unspecified (principal); Z76.0 Encounter for issue of repeat prescription; F14.10 Cocaine abuse, uncomplicated; Z59.0 Homelessness; Z88.8 Allergy status to other drugs, medicaments and biological substances
CPT/HCPCS: 99282; J3490

== ENCOUNTER 2018-06-22 23:11 | Emergency (ER) | payer MEDICAID, OTHER ==
--- NOTE | 2018-06-22 23:18 | ER Document Report ---
ED Medical Screen (RME) - General Stated Complaint: ANXIETY/DEPRESSION Time Seen by Provider: 06/22/18 23:15 Mode of Arrival: Medic Notes: pt is nervous confused and upset. here for psych eval, reports she is suicidal. I have greeted and performed a rapid initial assessment of this patient. A comprehensive ED assessment and evaluation of the patient, analysis of test results and completion of the medical decision making process will be conducted by additional ED providers. TRAVEL OUTSIDE OF THE [place] IN LAST 30 DAYS: No - Related Data Allergies/Adverse Reactions: paliperidone [From [facility]] Allergy (Verified 12/13/17 12:02) Past Medical History Renal/ Medical History: Denies: Hx Peritoneal Dialysis Psychiatric Medical History: Reports: Hx Depression, Hx Schizophrenia Past Surgical History: Reports: Hx Section - Immunizations Hx Diphtheria, Pertussis, Tetanus Vaccination: Yes
[2018-06-23 02:23] LABS: ACETAMINOPHEN < 10 ug/mL (10-30); ALANINE AMINOTRANSFERASE 31 U/L (9-52); ALBUMIN 4.3 g/dL (3.5-5.0); ALCOHOL 82 mg/dL (NONE DETECTED); ALKALINE PHOSPHATASE 72 U/L (38-126); ANION GAP 13 (5-19); ASPARTATE AMINO TRANSFERASE 28 U/L (14-36); BILIRUBIN,DIRECT 0.2 mg/dL (0.0-0.4); BILIRUBIN,TOTAL 0.5 mg/dL (0.2-1.3); BLOOD UREA NITROGEN 10 mg/dL (7-20); CALCIUM 9.2 mg/dL (8.4-10.2); CARBON DIOXIDE 24 mmol/L (22-30); CHLORIDE 104 mmol/L (98-107); GLUCOSE 99 mg/dL (75-110); POTASSIUM 3.6 mmol/L (3.6-5.0); SALICYLATE < 1.0 mg/dL (2.0-20.0); SODIUM 141.1 mmol/L (137-145); TOTAL PROTEIN 7.4 g/dL (6.3-8.2)
--- NOTE | 2018-06-23 05:43 | ER Document Report ---
Addendum entered and electronically signed by DC SOTO LCSWA 06/23/18 12:03: Discharge - Discharge Clinical Impression: Suicidal ideation, Cocaine abuse Alcohol intoxication Qualifiers: Complication of substance-induced condition: uncomplicated Qualified Code(s): F10.920 - Alcohol use, unspecified with intoxication, uncomplicated Condition: Stable Disposition: HOME, SELF-CARE Additional Instructions: You have been evaluated both both medical and behavioral health teams have been deemed appropriate for discharge. You are last injection was on 06/13/2018. You have an upcoming appointment at [facility] on 06/27/2018 at 10 AM. You are highly encouraged to follow through with his previously scheduled appointment. DEPRESSION: Your evaluation reveals that you have mental depression. While symptoms may be vague, they often include disturbance of sleep, fatigue, loss of appetite, and general loss of interest in life. While depression may be a side effect of drugs, or a reaction to a major change in your life, many cases have no known cause. If depression is acute, and related to a major loss in your life, you can expect it to clear completely with time. If you have been depressed a long time, are prone to repeated bouts of depression or low mood, or have been thinking of suicide, get help. Depression can be treated with anti-depressant medication and counselling. Long-term depression will often take a few weeks to clear, even with appropriate medication. Follow-up care is important. FOLLOW-UP CARE: If you experience worsening or a significant change in your symptoms, notify the physician immediately or return to the Emergency Department at any time for re- evaluation. Referrals: [facility] [Outside] - Follow up as needed Original Note: ED General - General Chief Complaint: Psych Problem Stated Complaint: ANXIETY/DEPRESSION Time Seen by Provider: 06/22/18 23:15 Mode of Arrival: Medic TRAVEL OUTSIDE OF THE U.S. IN LAST 30 DAYS: No - HPI Notes: Patient presents to the emergency department for evaluation of anxiety and depression. She states she is suicidal. She plans to throw herself into traffic. She is more upset over the recent of the family member. She has been in inpatient psychiatric facilities in the past, including in [place]. She admits to drinking beer often. She states she has used marijuana in the p ast as well. - Related Data Allergies/Adverse Reactions: paliperidone [From Invega] Allergy (Verified 12/13/17 12:02) Past Medical History - General Information source: Patient - Social History Smoking Status: Current Every Day Smoker Frequency of alcohol use: Heavy Drug Abuse: Marijuana Family History: Reviewed & Not Pertinent Patient has suicidal ideation: Yes Patient has homicidal ideation: No Renal/ Medical History: Denies: Hx Peritoneal Dialysis Psychiatric Medical History: Reports: Hx Depression, Hx Schizophrenia Past Surgical History: Reports: Hx Section - Immunizations Hx Diphtheria, Pertussis, Tetanus Vaccination: Yes Hx Pneumococcal Vaccination: 01/10/15 Review of Systems - Review of Systems Constitutional: No symptoms reported EENT: No symptoms reported Cardiovascular: No symptoms reported Respiratory: No symptoms reported Gastrointestinal: No symptoms reported Genitourinary: No symptoms reported Musculoskeletal: No symptoms reported Skin: No symptoms reported Neurological/Psychological: See HPI Physical Exam - Vital signs Vitals: Temp Pulse Resp BP Pulse Ox 97.6 F 110 H 18 143/95 H 97 06/22/18 23:18 06/22/18 23:18 06/22/18 23:18 06/22/18 23:18 06/22/18 23:18 - Notes Notes: Vital signs reviewed, please refer to chart. Patient is normocephalic, atraumatic. Pupils equal round, reactive to light. Neck is supple without meningismus. Heart is regular rate and rhythm. Lungs are clear to auscultation bilaterally. Abdomen is soft, nontender, normoactive bowel sounds throughout. Extremities without cyanosis, clubbing, edema. Peripheral pulses are equal. Skin is warm and dry. Patient is awake, alert, neurological exam is nonfocal. Depressed affect, diminished eye contact. Course - Re-evaluation Re-evalutation: 06/23/18 05:42 Patient presents to the emergency department for evaluation. She is suicidal. She has been drinking. She is actually at about the legal limit when blood is drawn. Laboratory vesication is otherwise unremarkable. Patient is medically cleared. Will await psychiatric evaluation. - Vital Signs Vital signs: Temp Pulse Resp BP Pulse Ox 97.6 F 110 H 18 143/95 H 97 06/22/18 23:18 06/22/18 23:18 06/22/18 23:18 06/22/18 23:18 06/22/18 23:18 - Laboratory Result Diagrams: 06/23/18 01:07 06/23/18 01:07 Laboratory results interpreted by me: 06/23/18 01:07 Salicylates < 1.0 L Acetaminophen < 10 L - EKG Interpretation by Me Additional EKG results interpreted by me: 06/23/18 05:42 Sinus mechanism with a rate of 72 bpm. Normal axis and intervals, no acute ST changes concerning for ischemia or infarction. Discharge - Discharge Clinical Impression: Alcohol intoxication, Suicidal ideation
[2018-06-23 06:28] LABS: ABSOLUTE EOSINOPHILS # (AUTO) 0.1 10^3/uL (0.0-0.6); ABSOLUTE LYMPHOCYTES (AUTO) 1.5 10^3/uL (0.5-4.7); ABSOLUTE MONOCYTES (AUTO) 0.5 10^3/uL (0.1-1.4); ABSOLUTE NEUT (AUTO) 5.6 10^3/uL (1.7-8.2); BASOPHILS % (AUTO) 0.5 % (0-2); EOSINOPHILS % (AUTO) 1.8 % (0-6); HEMATOCRIT 36.3 % (36.0-47.0); HEMOGLOBIN 12.1 g/dL (12.0-15.5); LYMPHOCYTES % (AUTO) 19.5 % (13-45); MEAN CORPUSCULAR HEMOGLOBIN 23.4 pg (27.0-33.4); MEAN CORPUSCULAR HGB CONC 33.5 g/dL (32.0-36.0); MEAN CORPUSCULAR VOLUME 70 fl (80-97); MONOCYTES % (AUTO) 5.9 % (3-13); PLATELET COUNT 203 10^3/uL (150-450); RED BLOOD COUNT 5.19 10^6/uL (3.72-5.28); RED CELL DISTRIBUTION WIDTH 15.2 % (11.5-14.0); SEGMENTED NEUTROPHILS % (AUTO) 72.3 % (42-78); TOTAL CELLS COUNTED % (AUTO) 100 %; WHITE BLOOD COUNT 7.7 10^3/uL (4.0-10.5)
--- NOTE | 2018-06-23 08:06 | EKG REPORT ---
SEVERITY:- NORMAL ECG - SINUS RHYTHM : Confirmed by: Sanket Cerrato MD 23-Jun-2018 08:05:11
[2018-06-23 08:47] LABS: APPEARANCE,URINE SLIGHTLY-CLOUDY; BILIRUBIN,URINE NEGATIVE (NEGATIVE); COLOR,URINE YELLOW; GLUCOSE, URINE NEGATIVE (NEGATIVE); KETONES,URINE TRACE mg/dL (NEGATIVE); LEUKOCYTE ESTERASE,URINE LARGE (NEGATIVE); NITRITE,URINE NEGATIVE (NEGATIVE); PROTEIN,URINE NEGATIVE (NEGATIVE); URINE SPECIFIC GRAVITY 1.019; UROBILINOGEN,URINE NEGATIVE mg/dL (<2.0)
[2018-06-23 09:02] LABS: URINE AMPHETAMINES SCREEN NEGATIVE; URINE BARBITURATES SCREEN NEGATIVE; URINE BENZODIAZEPINES SCREEN NEGATIVE; URINE COCAINE SCREEN UNCONFIRMED POSITIVE; URINE MARIJUANA (THC) SCREEN NEGATIVE; URINE METHADONE SCREEN NEGATIVE; URINE PHENCYCLIDINE SCREEN NEGATIVE
[2018-06-23 12:05] VITALS: BP 127/93
--- NOTE | 2018-06-25 06:15 | ER Document Report ---
Entered by TINY DAVIDSON SCRIBE 06/23/18 1150 Acting as scribe for:JOSE DANIELS DO Doctor's Note Notes: 06/23/18 11:52 Medical rounds: Patient is sleeping, easily awakens. States she presented to the emergency department because she is depressed. Reports receiving a monthly shot from [facility] in [place] that helps her depression but states she recently missed her last shot. She states she believes she will feel a lot better if she receives her shot. Patient is agreeable to plan. Stable to discharge. 06/25/18 06:15 After further investigation I did discover that the patient did receive her shot, after she was reminded that she received her shot she felt much more comfortable and was agreeable to being discharged home. Does not meet IVC criteria. I personally performed the services described in the documentation, reviewed and edited the documentation which was dictated to the scribe in my presence, and it accurately records my words and actions.
== END 2018-06-23 12:30 | disposition home or self-care (01) ==
LOC: ER 23:11
DX: F32.9 Major depressive disorder, single episode, unspecified (principal); R45.851 Suicidal ideations; F14.10 Cocaine abuse, uncomplicated; F10.120 Alcohol abuse with intoxication, uncomplicated; F17.200 Nicotine dependence, unspecified, uncomplicated; F12.10 Cannabis abuse, uncomplicated; Z79.899 Other long term (current) drug therapy; Z88.8 Allergy status to other drugs, medicaments and biological substances
CPT/HCPCS: 36415; 80053; 80307; 81001; 85025; 93005; 93010; 99285

== ENCOUNTER 2018-08-17 16:39 | Emergency (ER) | payer MEDICAID, OTHER ==
[2018-08-17] MEDS ORDERED: RISPERIDONE 1 MG TABLET PO ONE (18:26)
[2018-08-17] MEDS ORDERED: KETOROLAC TROMETHAMINE 60 MG/2 ML SDV IM ONE (18:26)
--- NOTE | 2018-08-17 18:30 | ER Document Report ---
HPI - HPI Patient complains to provider of: Med refill Time Seen by Provider: 08/17/18 18:21 Pain Level: 3 Context: Patient presents to the ER with chief complaint of med refill of her Risperdal and of bilateral hip pain x2 weeks. Patient was previously homeless and says that she sees mental health up at [facility]. She has not been able to get up there for a refill. She has no local doctor. She denies fever, chills, nausea, vomiting, urinary retention, bowel incontinence. - CONSTITUTIONAL Constitutional: DENIES: Fever, Chills - EENT EENT: DENIES: Sore Throat, Ear Pain, Eye problems - NEURO Neurology: DENIES: Headache, Weakness, Vision blurred, Dizzinesss / Vertigo - CARDIOVASCULAR Cardiovascular: DENIES: Chest pain - RESPIRATORY Respiratory: DENIES: Trouble Breathing, Coughing - GASTROINTESTINAL Gastrointestinal: DENIES: Abdominal Pain, Black / Bloody Stools - URINARY Urinary: DENIES: Dysuria, Urgency, Frequency - REPRODUCTIVE Reproductive: DENIES: : - MUSCULOSKELETAL Musculoskeletal: REPORTS: Extremity pain - bilateral lower extremity Past Medical History - Social History Smoking Status: Current Every Day Smoker Frequency of alcohol use: Heavy Family History: Reviewed & Not Pertinent Patient has suicidal ideation: No Patient has homicidal ideation: No Renal/ Medical History: Denies: Hx Peritoneal Dialysis Psychiatric Medical History: Reports: Hx Bipolar Disorder, Hx Depression, Hx Schizophrenia Past Surgical History: Reports: Hx Section - Immunizations Hx Diphtheria, Pertussis, Tetanus Vaccination: Yes Hx Pneumococcal Vaccination: 01/10/15 Vertical Provider Document - CONSTITUTIONAL Notes: PHYSICAL EXAMINATION: Reviewed vital signs and charting by RN GENERAL: Alert, interacts well. No acute distress. HEAD: Normocephalic, atraumatic. EYES: Pupils equal and round. Extraocular movements intact. ENT: Oral mucosa moist, tongue midline. NECK: Full range of motion. Supple. Trachea midline. LUNGS: Clear to auscultation bilaterally, no wheezes, rales, or rhonchi. No respiratory distress. HEART: Regular rate and rhythm. No murmur EXTREMITIES: Moves all 4 extremities spontaneously. No edema, No cyanosis. Normal distal neurovascular exam BACK: No CVAT NEUROLOGIC: Oriented and appropriate. Normal speech. PSYCH: Normal affect, normal mood. SKIN: Warm, dry, normal turgor. No rashes or lesions noted. - INFECTION CONTROL TRAVEL OUTSIDE OF THE [place]. IN LAST 30 DAYS: No Course - Re-evaluation Re-evalutation: 08/17/18 19:54 Patient is overall well-appearing. She is requesting a refill. I told her we do not have Risperdal injections here in our emergency department is not appropriate use of the year. Daily for 1 week so to bridge her until she can see her mental health provider Cheri Alexander. Patient has no red flags for lower back pain and her pattern is most consistent with musculoskeletal pain. At this time she is stable for discharge. - Vital Signs Vital signs: Temp Pulse Resp BP Pulse Ox 99.0 F 97 18 147/86 H 97 08/17/18 17:00 08/17/18 17:00 08/17/18 17:00 08/17/18 17:00 08/17/18 17:00 Discharge - Discharge Clinical Impression: Hip pain, Medication refill Condition: Good Disposition: HOME, SELF-CARE Additional Instructions: You are seen in the emergency department's afternoon for a medication refill and for some hip pain. Pain was nothing that would require you to get admitted to the hospital as there were no red flags requiring surgery. If you do have urinary retention, bowel incontinence, develop high fever, or have paralysis of the extremities that is an emergency needs to return to the emergency department. For your medication refill, it is important that you go back up to [place] and reestablish care with your mental health team. I gave you 1 weeks of oral supply of the medication to tide you over until he can get there to get your shots. We do not have this type shot in the emergency department. If you have any other concerns, severe chest pain, acute shortness of breath, you pass out, please immediately return to the emergency department. Prescriptions: Risperidone [Risperdal 1 mg Tablet] 1 mg PO DAILY #7 tablet
[2018-08-17 18:41] VITALS: BP 140/80
== END 2018-08-17 18:44 | disposition home or self-care (01) ==
LOC: ER 16:39
DX: Z76.0 Encounter for issue of repeat prescription (principal); F20.9 Schizophrenia, unspecified; F31.9 Bipolar disorder, unspecified; M25.551 Pain in right hip; M25.552 Pain in left hip; F17.200 Nicotine dependence, unspecified, uncomplicated
CPT/HCPCS: 99281; 96372; J3490; J1885

== ENCOUNTER 2019-01-10 14:34 | Emergency (ER) | payer MEDICAID ==
--- NOTE | 2019-01-10 15:07 | ER Document Report ---
ED Medical Screen (RME) - General Chief Complaint: Depression Stated Complaint: DEPRESSION Time Seen by Provider: 01/10/19 15:04 Mode of Arrival: Ambulatory Information source: Patient Notes: 58-year-old female presented to ED for complaint of feeling severely depressed with a history of schizophrenia and bipolar depression. She states she missed her appointment to get her respiratory shot and now she is extremely sad. She states she does smoke 2 packs a day drinks 2 to 3 cups of vodka a day and smokes. She states she does with her cousin. She states she hopes she does not hurt anybody but she does not know since she has not had her shot I have greeted and performed a rapid initial assessment of this patient. A comprehensive ED assessment and evaluation of the patient, analysis of test results and completion of medical decision making process will be conducted by an additional ED providers. TRAVEL OUTSIDE OF THE [place]. IN LAST 30 DAYS: No - Related Data Allergies/Adverse Reactions: paliperidone [From Invega] Allergy (Verified 01/10/19 14:50) Past Medical History - Social History Frequency of alcohol use: 4beer/day Drug Abuse: Marijuana Renal/ Medical History: Denies: Hx Peritoneal Dialysis Psychiatric Medical History: Reports: Hx Bipolar Disorder, Hx Depression, Hx Schizophrenia Past Surgical History: Reports: Hx Section - Immunizations Hx Diphtheria, Pertussis, Tetanus Vaccination: Yes Physical Exam - Vital signs Vitals: Temp Pulse Resp BP Pulse Ox 98.2 F 88 16 132/74 H 96 01/10/19 14:48 01/10/19 14:48 01/10/19 14:48 01/10/19 14:48 01/10/19 14:48 Course - Vital Signs Vital signs: Temp Pulse Resp BP Pulse Ox 98.2 F 88 16 132/74 H 96 01/10/19 14:48 01/10/19 14:48 01/10/19 14:48 01/10/19 14:48 01/10/19 14:48
[2019-01-10 16:05] LABS: ABSOLUTE EOSINOPHILS # (AUTO) 0.1 10^3/uL (0.0-0.6); ABSOLUTE LYMPHOCYTES (AUTO) 1.5 10^3/uL (0.5-4.7); ABSOLUTE MONOCYTES (AUTO) 0.2 10^3/uL (0.1-1.4); ABSOLUTE NEUT (AUTO) 3.3 10^3/uL (1.7-8.2); BASOPHILS % (AUTO) 0.5 % (0-2); EOSINOPHILS % (AUTO) 1.5 % (0-6); HEMATOCRIT 35.4 % (36.0-47.0); HEMOGLOBIN 11.6 g/dL (12.0-15.5); LYMPHOCYTES % (AUTO) 28.7 % (13-45); MEAN CORPUSCULAR HEMOGLOBIN 23.8 pg (27.0-33.4); MEAN CORPUSCULAR HGB CONC 32.7 g/dL (32.0-36.0); MEAN CORPUSCULAR VOLUME 73 fl (80-97); MONOCYTES % (AUTO) 4.4 % (3-13); PLATELET COUNT 185 10^3/uL (150-450); RED BLOOD COUNT 4.85 10^6/uL (3.72-5.28); RED CELL DISTRIBUTION WIDTH 17.7 % (11.5-14.0); SEGMENTED NEUTROPHILS % (AUTO) 64.9 % (42-78); TOTAL CELLS COUNTED % (AUTO) 100 %; WHITE BLOOD COUNT 5.1 10^3/uL (4.0-10.5)
[2019-01-10 16:12] LABS: APPEARANCE,URINE CLEAR; BILIRUBIN,URINE NEGATIVE (NEGATIVE); COLOR,URINE YELLOW; GLUCOSE, URINE NEGATIVE (NEGATIVE); KETONES,URINE NEGATIVE (NEGATIVE); LEUKOCYTE ESTERASE,URINE NEGATIVE (NEGATIVE); NITRITE,URINE NEGATIVE (NEGATIVE); PROTEIN,URINE NEGATIVE (NEGATIVE); URINE SPECIFIC GRAVITY 1.013; UROBILINOGEN,URINE NEGATIVE mg/dL (<2.0)
[2019-01-10 16:21] LABS: ALCOHOL 21 mg/dL (NONE DETECTED); ALKALINE PHOSPHATASE 88 U/L (38-126); ANION GAP 10 (5-19); ASPARTATE AMINO TRANSFERASE 41 U/L (14-36); BILIRUBIN,TOTAL 0.5 mg/dL (0.2-1.3); BLOOD UREA NITROGEN 10 mg/dL (7-20); CARBON DIOXIDE 25 mmol/L (22-30); CHLORIDE 104 mmol/L (98-107); GLUCOSE 102 mg/dL (75-110); POTASSIUM 3.5 mmol/L (3.6-5.0); TOTAL PROTEIN 7.4 g/dL (6.3-8.2)
[2019-01-10 16:28] LABS: ACETAMINOPHEN < 10 ug/mL (10-30)
[2019-01-10 16:30] LABS: URINE AMPHETAMINES SCREEN NEGATIVE; URINE BARBITURATES SCREEN NEGATIVE; URINE BENZODIAZEPINES SCREEN NEGATIVE; URINE COCAINE SCREEN UNCONFIRMED POSITIVE; URINE MARIJUANA (THC) SCREEN NEGATIVE; URINE METHADONE SCREEN NEGATIVE; URINE PHENCYCLIDINE SCREEN NEGATIVE
[2019-01-10] MEDS ORDERED: RISPERIDONE MICROSPHERES INJ 50 MG/2 ML KIT IM ONE (16:55)
--- NOTE | 2019-01-10 16:55 | ER Document Report ---
ED Psych Disorder / Suicide <ALEKS OWENS - Last Filed: 01/10/19 17:10> - General Mode of Arrival: Ambulatory TRAVEL OUTSIDE OF THE U.S. IN LAST 30 DAYS: No <TAVO BETTENCOURT - Last Filed: 01/10/19 18:00> - General Chief Complaint: Depression Stated Complaint: DEPRESSION Time Seen by Provider: 01/10/19 15:04 Primary Care Provider: [facility] [Outside] - Follow up as needed [facility] [Outside] - 01/12/19 12:00 pm ([facility] location) - HPI Notes: This is a 58-year-old female with a history of depression who presents today because she feels depressed. Patient states that she missed her appointment to get her Risperdal 50 mg IM shot which she gets biweekly. She hopes he can get that today in the ED. She has no suicidal homicidal ideations. She has no physical complaints. (TAVO BETTENCOURT) - Related Data Allergies/Adverse Reactions: paliperidone [From Invega] Allergy (Verified 01/10/19 14:50) Past Medical History - General Information source: Patient - Social History Smoking Status: Current Every Day Smoker Frequency of alcohol use: 4beer/day Drug Abuse: Marijuana Family History: Reviewed & Not Pertinent Patient has suicidal ideation: No Patient has homicidal ideation: No Renal/ Medical History: Denies: Hx Peritoneal Dialysis Psychiatric Medical History: Reports: Hx Bipolar Disorder, Hx Depression, Hx Schizophrenia Past Surgical History: Reports: Hx Section - Immunizations Hx Diphtheria, Pertussis, Tetanus Vaccination: Yes Hx Pneumococcal Vaccination: 01/10/15 <TAVO BETTENCOURT - Last Filed: 01/10/19 18:00> Review of Systems - Review of Systems Cardiovascular: denies: Chest pain, Palpitations Gastrointestinal: denies: Abdominal pain, Nausea, Vomiting Genitourinary: denies: Burning, Dysuria, Flank pain Neurological/Psychological: Depression. denies: Hallucinations, Homicidal ideation, Suicidal ideation -: Yes All other systems reviewed and negative <TAVO BETTENCOURT - Last Filed: 01/10/19 18:00> Physical Exam - General General appearance: Appears well, Alert - Respiratory Respiratory status: No respiratory distress Chest status: Nontender Breath sounds: Normal Chest palpation: Normal - Cardiovascular Rhythm: Regular Heart sounds: Normal auscultation Murmur: No - Abdominal Inspection: Normal Distension: No distension Bowel sounds: Normal Tenderness: Nontender Organomegaly: No organomegaly - Neurological Neuro grossly intact: Yes Cognition: Normal Orientation: AAOx4 [place] Coma Scale Eye Opening: Spontaneous [place] Coma Scale Verbal: Oriented [place] Coma Scale Motor: Obeys Commands [place] Coma Scale Total: 15 Speech: Normal Motor strength normal: LUE, RUE, LLE, RLE Sensory: Normal - Psychological Associated symptoms: Normal affect - Patient denies suicidal or homicidal ideations., Normal mood - Skin Skin Temperature: Warm <TAVO BETTENCOURT P - Last Filed: 01/10/19 18:00> - Vital signs Vitals: Temp Pulse Resp BP Pulse Ox 98.2 F 88 16 132/74 H 96 01/10/19 14:48 01/10/19 14:48 01/10/19 14:48 01/10/19 14:48 01/10/19 14:48 Course - Laboratory Result Diagrams: 01/10/19 15:36 01/10/19 15:36 <ALEKS OWENS - Last Filed: 01/10/19 17:10> - Laboratory Result Diagrams: 01/10/19 15:36 01/10/19 15:36 <TAVO BETTENCOURT - Last Filed: 01/10/19 18:00> - Re-evaluation Re-evalutation: 01/10/19 17:06 Clinical picture suggest depression. Patient likely just needs a shot of her Risperdal. She denies suicidal homicidal ideation. However, I will get behavioral health assessment done. 01/10/19 17:53 Patient is doing well. Patient got Risperdal here. Patient has been seen by [facility] team. Recommendation for discharge is made. She has upcoming appointment. She is stable for discharge. (TAVO BETTENCOURT) - Vital Signs Vital signs: Temp Pulse Resp BP Pulse Ox 98.2 F 88 16 132/74 H 96 01/10/19 14:48 01/10/19 14:48 01/10/19 14:48 01/10/19 14:48 01/10/19 14:48 - Laboratory Laboratory results interpreted by me: 01/10/19 01/10/19 15:36 15:36 Hgb 11.6 L Hct 35.4 L MCV 73 L MCH 23.8 L RDW 17.7 H Potassium 3.5 L AST 41 H Salicylates 1.0 L Acetaminophen < 10 L Discharge <ALEKS OWENS - Last Filed: 01/10/19 17:10> <TAVO BETTENCOURT - Last Filed: 01/10/19 18:00> - Discharge Clinical Impression: History of schizoaffective disorder, Cocaine abuse Depression Qualifiers: Depression Type: unspecified Qualified Code(s): F32.9 - Major depressive disorder, single episode, unspecified Alcohol intoxication Qualifiers: Complication of substance-induced condition: uncomplicated Qualified Code(s): F10.920 - Alcohol use, unspecified with intoxication, uncomplicated Condition: Stable Disposition: HOME, SELF-CARE Instructions: Depression (OM) Additional Instructions: You have been evaluated by both medical and behavioral health providers while in the emergency department. You have been cleared from both acute medical and psychiatric services. You had alcohol (downer) and cocaine (upper) in your syst em. Both inhibit cognition and impair insight/judgment/impulse control. Using downers and uppers is detrimental to physical health (heart and other organs) and to mental health (mimic Bipolar and Schizophrenia symptoms). You should avoid the use of alcohol and cocaine as they can interfere with prescribed medication effectiveness. You should follow up with your outpatient provider ([facility] in [place]). You are encouraged to make scheduled appointments since you receive injection medication every two weeks. CHRONIC ALCOHOLISM and ALCOHOL ABUSE: Your evaluation reveals evidence of chronic alcoholism, an addiction to alcohol. The tendency to alcoholism may be inherited. Chronic use of alcohol weakens muscles, causes fatty deposits in the liver, damages the stomach, makes you more prone to infections, and can cause defects in unborn children. In the long run, brain atrophy and cirrhosis of the liver result. You are also at greater risk for certain types of cancer, such as cancer of the mouth, throat, stomach, and liver. Counselling services are available to help you. In-hospital treatment programs often help. Support groups such as Alcoholics Anonymous can be very useful in beating this addiction. Your physician can make a referral for you. As alcoholics often are prone to other addictions, you should discuss your use of any other medications with the doctor. COCAINE ABUSE: Cocaine causes many dangerous medical problems. Problems can occur even with "usual" amounts. Cocaine affects judgement, creating a sense of invulnerability. Cocaine users often make bad decisions that seem "great" at the time. Most cocaine users eventually will be hurt by bad job performance, damaged personal relations, crime, and unsafe sexual practices. Toxic effects of cocaine can include seizures, hallucinations, delusions, high blood pressure, heart damage, or sudden . There's always the risk of a "bad batch." But heart attacks, brain hemorrhages, or cardiac arrest can occur unpredictably even with "normal" use. Injection of cocaine is risky for abscesses, endocarditis (heart infection), pneumonia, and AIDS. Withdrawal from cocaine often causes anxiety and drug cravings. Some users become paranoid and psychotic. Many treatment programs are available, but you must make the decision to quit. Medication can be prescribed to control the symptoms of cocaine toxicity (beta blockers or benzodiazepines). Withdrawal symptoms may require tranquilizers. Bipolar Disorder (symptoms of both Bipolar and Schizophrenia are often referred to as Schizoaffective) Bipolar disorder is also called manic-depressive disorder. Depression alternates with brain hyperactivity called elena. Each phase lasts from several days to a few weeks. We don't know exactly what causes bipolar disorder, but it's treatable. During the "manic phase," you may feel elated and energetic. You may have racing thoughts, rapid speech, increased activity, and grandiose ideas. During this time, you may not realize how poor your judgement is. Inappropriate spending, drug abuse, excessive alcohol use, marriage problems, and irresponsible sexual behavior are common during the manic phase. During the "depressive phase," you might feel depressed, guilty, worthless, fatigued, and unable to concentrate. You might have thoughts of suicide. Good treatments are available for bipolar disorder. [place] is a classic drug for bipolar disorder, and is still often useful. If the manic phase is very mild, an antidepressant alone can be prescribed. If the manic phase is very severe, an antipsychotic medicine (such as Haldol) may be needed. The treatment must be matched to your symptoms, so it's important to work closely with your psychiatric care provider. Contact your physician, the hospital emergency center, crisis line, or your counsellor if you are losing control or having self-destructive thoughts. Schizophrenia (symptoms of both Bipolar and Schizophrenia are often referred to as Schizoaffective) Schizophrenia is a chemical disorder that affects how the brain functions. The exact cause is unknown, but it tends to run in families. It is NOT caused by emotional trauma. Schizophrenia causes disordered thinking, including unusual beliefs and inability to "process" happenings around the patient. Patients with schizophrenia benefit greatly from medicine. These medicines are called antipsychotics. Never stop the medicine without the doctor's approval. Counselling may help the patient deal with his disease. Schizophrenics require a very ordered environment. Stresses and sudden changes may bring out symptoms. Drugs and alcohol abuse may become problems. Contact the counsellor or crisis line if there are thoughts of suicide or of harming others, or if you become aware of unusual thoughts or beliefs FOLLOW-UP CARE: You have been administered a Risperdal Consta 50MG shot while in the emergency department. You should abstain from alcohol and cocaine use as it can interfere with medication effectiveness. [facility] in [place] rescheduled your appointment for 01/12/19 at 1200. You have been provided this appointment information in addition to [facility] Mobile Crisis number. If you experience worsening or a significant change in your symptoms, notify the physician immediately, utilize mobile crisis or return to the Emergency Dep artment at any time for re-evaluation. Referrals: [facility] Crisis Team [Outside] - Follow up as needed [facility] [Outside] - 01/12/19 12:00 pm ([facility] location)
[2019-01-10 18:07] VITALS: BP 151/75
--- NOTE | 2019-01-10 20:51 | EKG REPORT ---
SEVERITY:- NORMAL ECG - SINUS RHYTHM : Confirmed by: Kari Porter MD 10-Jan-2019 20:50:57
--- NOTE | 2019-01-12 14:32 | PSYCHOLOGICAL NOTE ---
Psych Note - Psych Note Date seen by psych provider: 01/10/19 Psych Note: Presenting Problem: Depression no SI/HI, Hx Schizoaffective and Polysubstance (alcohol, cocaine), missed her appointment at [facility] for Risperdal Consta 50MG every two weeks. UDS positive for cocaine and Serum Alcohol Level was 21 upon arrival to the ED. [facility] team CM contacted [facility] who confirmed she missed appointment for Risperdal Consta injection and rescheduled her appointment for 01/12/19 at noon Diagnosis: Polysubstance Intoxication, Use and Hx Alcohol Use Disorder, Severe Cocaine Use Disorder, Severe Schizoaffective Disorder, Bipolar Type by Hx Impression/Plan: Patient is cleared from acute psychiatric services. Patient was alert and oriented x5 with linear thinking, she denied SI/HI, presented depressed with flat affect (note positive for both alcohol and cocaine), she had fair eye contact, she was able to engage and carry on dialogue conversation which was within normal limits for rate/tone/prosody. She declined linkage and referral to detox. Coordinated with [facility] DANIEL to reschedule appointment to get Risperdal Consta injection on 01/12/19 at 1200 since she missed appointment today. ED physician provided the Risperdal Consta injection prior to discharge.
== END 2019-01-10 18:07 | disposition home or self-care (01) ==
LOC: ER 14:34
DX: F31.9 Bipolar disorder, unspecified (principal); T43.596A Underdosing of other antipsychotics and neuroleptics, initial encounter; Z91.14 Patient's other noncompliance with medication regimen; F25.9 Schizoaffective disorder, unspecified; F10.120 Alcohol abuse with intoxication, uncomplicated; F14.10 Cocaine abuse, uncomplicated; F17.200 Nicotine dependence, unspecified, uncomplicated; Z88.8 Allergy status to other drugs, medicaments and biological substances
CPT/HCPCS: 93005; 36415; 80307 ×4; 85025; 80053; 81001; 93010; J2794

== ENCOUNTER 2019-01-10 22:52 | Emergency (ER) | payer MEDICAID ==
[2019-01-11] LABS: ABSOLUTE EOSINOPHILS # (AUTO) 0.1 10^3/uL (0.0-0.6); ABSOLUTE LYMPHOCYTES (AUTO) 1.5 10^3/uL (0.5-4.7); ABSOLUTE MONOCYTES (AUTO) 0.3 10^3/uL (0.1-1.4); BASOPHILS % (AUTO) 0.4 % (0-2); EOSINOPHILS % (AUTO) 1.1 % (0-6); HEMATOCRIT 36.3 % (36.0-47.0); HEMOGLOBIN 11.7 g/dL (12.0-15.5); LYMPHOCYTES % (AUTO) 25.3 % (13-45); MEAN CORPUSCULAR HEMOGLOBIN 23.4 pg (27.0-33.4); MEAN CORPUSCULAR HGB CONC 32.2 g/dL (32.0-36.0); MEAN CORPUSCULAR VOLUME 73 fl (80-97); MONOCYTES % (AUTO) 5.5 % (3-13); PLATELET COUNT 192 10^3/uL (150-450); RED BLOOD COUNT 4.98 10^6/uL (3.72-5.28); RED CELL DISTRIBUTION WIDTH 17.8 % (11.5-14.0); SEGMENTED NEUTROPHILS % (AUTO) 67.7 % (42-78); TOTAL CELLS COUNTED % (AUTO) 100 %; WHITE BLOOD COUNT 5.9 10^3/uL (4.0-10.5)
--- NOTE | 2019-01-11 00:05 | ER Document Report ---
ED GI/ - General Chief Complaint: Abdominal Pain Stated Complaint: STOMACH PAIN Time Seen by Provider: 01/11/19 00:03 Mode of Arrival: Ambulatory Information source: Patient Notes: HISTORY OF PRESENT ILLNESS: Patient is a 58-year-old female with a past medical history of chronic schizophrenia who presents with epigastric abdominal pain that is described as burning and aching in sensation without radiation. Location: Epigastric Onset: Prior to arrival Alleviation: None Provocation: Unknown Quality: None Radiation: None Severity: Currently mild Timing: Constant History of abdominal surgery: None Associated symptoms: No fevers or chills, no cough or congestion, no chest pain or shortness of breath, no diarrhea or constipation Last bowel movement: Today and normal REVIEW OF SYSTEMS: CONSTITUTIONAL : Denies fever or chills, no sweats. Denies recent illness. EENT: Denies eye, ear, throat, or mouth pain or symptoms. Denies nasal or sinus congestion. CARDIOVASCULAR: Denies chest pain. Denies swelling of the legs. RESPIRATORY: Denies cough, cold, or chest congestion. Denies shortness of breath or difficulty breathing. Denies wheezing. GASTROINTESTINAL: Positive for abdominal pain. Denies nausea, vomiting, or diarrhea. Denies constipation. GENITOURINARY: Denies difficulty urinating, painful urination, burning, frequency, or blood in urine. FEMALE GENITOURINARY: Denies vaginal bleeding, abnormal or irregular periods. MUSCULOSKELETAL: Denies neck or back pain or joint pain or swelling. SKIN: Denies rash or skin lesions. HEMATOLOGIC : Denies easy bruising or bleeding. LYMPHATIC: Denies swollen, enlarged glands. NEUROLOGICAL: Denies altered mental status or loss of consciousness. Denies headache. Denies weakness or paralysis or loss of use of either side. Denies problems with gait or speech. Denies sensory or motor loss. PSYCHIATRIC: Denies anxiety or stress or depression. All other systems reviewed and negative. PHYSICAL EXAMINATION: GENERAL: Well-appearing, well-nourished and in no acute distress. HEAD: Atraumatic, normocephalic. No scalp deformity, depression, or crepitance. EYES: Pupils are 3 mm and equal/round/reactive to light, extraocular movements intact, sclera anicteric, conjunctiva are normal. ENT: Nares patent bilaterally, oropharynx. Moist mucous membranes. No tonsil hypertrophy. NECK: Normal range of motion, supple without lymphadenopathy. LUNGS: Breath sounds present, equal, and clear to auscultation bilaterally. No wheezes, rales, or rhonchi. HEART: Regular rate and rhythm without murmurs, rubs, or gallops. 2+ peripheral pulses. Normal capillary refill. ABDOMEN: Soft, nontender, nondistended. Normoactive bowel sounds. No guarding, no rebound. No masses appreciated. BACK: Normal contour, no midline tenderness. Rectal exam deferred. GENITAL/PELVIC: Deferred. EXTREMITIES: Normal range of motion, no pitting or edema. No cyanosis. NEUROLOGICAL: No focal neurological deficits. Moves all extremities sp ontaneously and on command. PSYCH: Normal mood, normal affect. No suicidal thoughts/ideations. No homicidal thoughts/ideations. No hallucinations. SKIN: Warm, dry, normal turgor, no rashes or lesions noted. ASSESSMENT AND PLAN: This patient is a 58-year-old female who presents with vague epigastric abdominal pain with a normal exam. 1. Will obtain labs, urine, and reassess. 2. Will give GI cocktail and reassess. TRAVEL OUTSIDE OF THE [place] IN LAST 30 DAYS: No - HPI Patient complains to provider of: Abdominal pain Onset: This evening Timing/Duration: Sudden Quality of pain: Achy, Burning Severity at maximum: Mild Severity in ED: Mild Pain Level: 1 Location: Epigastric Vaginal bleeding (Compared to normal period): None Associated symptoms: Nausea Exacerbated by: Denies Relieved by: Denies Similar symptoms previously: No Recently seen / treated by doctor: No - Related Data Allergies/Adverse Reactions: paliperidone [From Invega] Allergy (Verified 01/10/19 14:50) Past Medical History - General Information source: Patient - Social History Smoking Status: Current Every Day Smoker Chew tobacco use (# tins/day): No Frequency of alcohol use: None Drug Abuse: None Lives with: Alone Family History: Reviewed & Not Pertinent Patient has suicidal ideation: No Patient has homicidal ideation: No - Past Medical History Cardiac Medical History: Reports: None Pulmonary Medical History: Reports: None EENT Medical History: Reports: None Neurological Medical History: Reports: None Endocrine Medical History: Reports: None Renal/ Medical History: Reports: None. Denies: Hx Peritoneal Dialysis Malignancy Medical History: Reports: None GI Medical History: Reports: None Musculoskeletal Medical History: Reports None Skin Medical History: Reports None Psychiatric Medical History: Reports: Hx Bipolar Disorder, Hx Depression, Hx Schizophrenia Traumatic Medical History: Reports: None Infectious Medical History: Reports: None Past Surgical History: Reports: Hx Section - Immunizations Hx Diphtheria, Pertussis, Tetanus Vaccination: Yes Hx Pneumococcal Vaccination: 01/10/15 Review of Systems - Review of Systems Constitutional: No symptoms reported EENT: No symptoms reported Cardiovascular: No symptoms reported Respiratory: No symptoms reported Gastrointestinal: See HPI, Abdominal pain Genitourinary: No symptoms reported Female Genitourinary: No symptoms reported Musculoskeletal: No symptoms reported Skin: No symptoms reported Hematologic/Lymphatic: No symptoms reported Neurological/Psychological: No symptoms reported -: Yes All other systems reviewed and negative Physical Exam - Vital signs Vitals: Temp Pulse Resp BP Pulse Ox 97.4 F 71 18 129/71 H 97 01/10/19 22:59 01/10/19 22:59 01/10/19 22:59 01/10/19 22:59 01/10/19 22:59 Interpretation: Normal Course - Re-evaluation Re-evalutation: 01/11/19 02:48 Labs are negative. Will discharge the patient home with strict return precautions and follow-up with primary care. All results were explained to and discussed with the patient, and all questions addressed and answered. The patient voices both understanding and agreeing with the plan. - Vital Signs Vital signs: Temp Pulse Resp BP Pulse Ox 97.4 F 71 18 129/71 H 97 01/10/19 22:59 01/10/19 22:59 01/10/19 22:59 01/10/19 22:59 01/10/19 22:59 - Laboratory Result Diagrams: 01/10/19 23:40 01/10/19 23:40 Laboratory results interpreted by me: 01/10/19 23:40 Hgb 11.7 L MCV 73 L MCH 23.4 L RDW 17.8 H - EKG Interpretation by [place] EKG shows normal: Sinus rhythm Rate: Normal Rhythm: NSR [place]/QRS: No: Right axis deviation, Left axis deviation, RBBB, LBBB, IVCD, LAHB/LAFB, LPHB/LPFB, Bifasicular block Voltage: No: Increased voltage, Consistant with LVH, Decreased voltage, Throughout, Limb leads P Waves: No: ALTHEA, LAE, Absent, AV Dissociation, Other Heart block present: No: 1st Degree, Mobitz 1, Mobitz 2, CHB (3rd degree block) When compared to previous EKG there are: No significant change Discharge - Discharge Clinical Impression: Abdominal pain Qualifiers: Abdominal location: generalized Qualified Code(s): R10.84 - Generalized abdominal pain Condition: Good Disposition: HOME, SELF-CARE Instructions: Abdominal Pain ([facility]) Additional Instructions: You have been evaluated in the Emergency Department for abdominal pain. While here, you had blood work that was normal and it is now safe to be discharged home. Please follow-up with your primary physician as instructed in one week to be rechecked. Return to the Emergency Department if you experience worsening pain, uncontrollable vomiting, chest pain, difficulty breathing, or any other concerning symptoms. Print Language: Tamazight
[2019-01-11 00:12] LABS: ALBUMIN 3.7 g/dL (3.5-5.0); ALKALINE PHOSPHATASE 89 U/L (38-126); ANION GAP 8 (5-19); ASPARTATE AMINO TRANSFERASE 26 U/L (14-36); BILIRUBIN,DIRECT 0.1 mg/dL (0.0-0.4); BILIRUBIN,TOTAL 0.4 mg/dL (0.2-1.3); BLOOD UREA NITROGEN 12 mg/dL (7-20); CALCIUM 8.9 mg/dL (8.4-10.2); CARBON DIOXIDE 25 mmol/L (22-30); CHLORIDE 104 mmol/L (98-107); GLUCOSE 105 mg/dL (75-110); POTASSIUM 3.7 mmol/L (3.6-5.0); TOTAL PROTEIN 6.9 g/dL (6.3-8.2)
[2019-01-11 03:11] VITALS: BP 134/74
--- NOTE | 2019-01-11 08:03 | EKG REPORT ---
SEVERITY:- NORMAL ECG - SINUS RHYTHM : Confirmed by: Kari Porter MD 11-Jan-2019 08:02:36
== END 2019-01-11 03:09 | disposition home or self-care (01) ==
LOC: ER 22:52
DX: R10.84 Generalized abdominal pain (principal); F17.200 Nicotine dependence, unspecified, uncomplicated
CPT/HCPCS: 36415; 83690; 87070; 93005; 93010

== ENCOUNTER 2019-01-12 14:22 | Emergency (ER) | payer MEDICAID | END 2019-01-12 14:30 | disposition left against medical advice (07) | LOC: ER 14:22 | DX: Z53.21 Procedure and treatment not carried out due to patient leaving prior to being seen by health care provider (principal) ==

== ENCOUNTER 2019-01-28 11:57 | Emergency (ER) | payer MEDICAID ==
--- NOTE | 2019-01-28 13:10 | ER Document Report ---
ED Medical Screen (RME) - General Chief Complaint: Dizziness Stated Complaint: DIZZY, BLOOD PRESSURE ISSUES Time Seen by Provider: 01/28/19 13:05 Mode of Arrival: Ambulatory Information source: Patient Notes: 58-year-old female presented to ED for complaint of dizziness and low blood pressure. She states she had high blood pressure for 5 days ago and went to the doctor and he told her to get a machine and check her blood pressure regularly. He did not start on any kind of medication. Her blood pressure today is 105/62. She states that when the doctor checked it before it was 184/86. States she is not taking any medication since that time. She states she drinks 5 or 6 beer a day and she states she does smoke marijuana last time was probably a couple days ago. States she is not really changed her diet. I have greeted and performed a rapid initial assessment of this patient. A comprehensive ED assessment and evaluation of the patient, analysis of test results and completion of medical decision making process will be conducted by an additional ED providers. TRAVEL OUTSIDE OF THE [place] IN LAST 30 DAYS: No - Related Data Allergies/Adverse Reactions: paliperidone [From Invega] Allergy (Verified 01/10/19 14:50) Past Medical History Renal/ Medical History: Denies: Hx Peritoneal Dialysis Psychiatric Medical History: Reports: Hx Bipolar Disorder, Hx Depression, Hx Schizophrenia Past Surgical History: Reports: Hx Section - Immunizations Hx Diphtheria, Pertussis, Tetanus Vaccination: Yes Physical Exam - Vital signs Vitals: Temp Pulse Resp BP Pulse Ox 98 F 80 16 105/62 96 01/28/19 12:04 01/28/19 12:04 01/28/19 12:04 01/28/19 12:04 01/28/19 12:04 Course - Vital Signs Vital signs: Temp Pulse Resp BP Pulse Ox 98 F 80 16 105/62 96 01/28/19 12:04 01/28/19 12:04 01/28/19 12:04 01/28/19 12:04 01/28/19 12:04
[2019-01-28 13:44] LABS: ABSOLUTE EOSINOPHILS # (AUTO) 0.1 10^3/uL (0.0-0.6); ABSOLUTE LYMPHOCYTES (AUTO) 1.4 10^3/uL (0.5-4.7); ABSOLUTE MONOCYTES (AUTO) 0.3 10^3/uL (0.1-1.4); BASOPHILS % (AUTO) 0.7 % (0-2); EOSINOPHILS % (AUTO) 1.6 % (0-6); HEMOGLOBIN 11.1 g/dL (12.0-15.5); LYMPHOCYTES % (AUTO) 28.8 % (13-45); MEAN CORPUSCULAR HEMOGLOBIN 23.8 pg (27.0-33.4); MEAN CORPUSCULAR HGB CONC 32.6 g/dL (32.0-36.0); MEAN CORPUSCULAR VOLUME 73 fl (80-97); MONOCYTES % (AUTO) 6.5 % (3-13); PLATELET COUNT 185 10^3/uL (150-450); RED BLOOD COUNT 4.64 10^6/uL (3.72-5.28); RED CELL DISTRIBUTION WIDTH 16.7 % (11.5-14.0); SEGMENTED NEUTROPHILS % (AUTO) 62.4 % (42-78); TOTAL CELLS COUNTED % (AUTO) 100 %; WHITE BLOOD COUNT 4.9 10^3/uL (4.0-10.5)
[2019-01-28 14:02] LABS: ALBUMIN 3.9 g/dL (3.5-5.0); ALKALINE PHOSPHATASE 96 U/L (38-126); ANION GAP 6 (5-19); ASPARTATE AMINO TRANSFERASE 29 U/L (14-36); BILIRUBIN,TOTAL 0.3 mg/dL (0.2-1.3); BLOOD UREA NITROGEN 10 mg/dL (7-20); CALCIUM 8.9 mg/dL (8.4-10.2); CARBON DIOXIDE 30 mmol/L (22-30); CHLORIDE 102 mmol/L (98-107); CREATINE KINASE 94 U/L (30-135); GLUCOSE 123 mg/dL (75-110); POTASSIUM 4.2 mmol/L (3.6-5.0); TOTAL PROTEIN 7.3 g/dL (6.3-8.2)
[2019-01-28 14:13] LABS: APPEARANCE,URINE CLEAR; BILIRUBIN,URINE NEGATIVE (NEGATIVE); COLOR,URINE YELLOW; GLUCOSE, URINE NEGATIVE (NEGATIVE); KETONES,URINE NEGATIVE (NEGATIVE); LEUKOCYTE ESTERASE,URINE NEGATIVE (NEGATIVE); NITRITE,URINE NEGATIVE (NEGATIVE); PROTEIN,URINE NEGATIVE (NEGATIVE); URINE SPECIFIC GRAVITY 1.016
[2019-01-28 14:13] LABS: CREATINE KINASE MB 0.95 ng/mL (<4.55)
[2019-01-28 14:17] LABS: TROPONIN I < 0.012 ng/mL
--- NOTE | 2019-01-28 15:20 | ER Document Report ---
ED General - General Chief Complaint: Dizziness Stated Complaint: DIZZY, BLOOD PRESSURE ISSUES Time Seen by Provider: 01/28/19 13:05 Mode of Arrival: Ambulatory TRAVEL OUTSIDE OF THE [place] IN LAST 30 DAYS: No - HPI Notes: Patient is a 58-year-old female with history of mental health disorders who presents complaining of having a higher blood pressure reading today. Patient states that she was told by her doctor that if it is high she needs to come to the hospital. She is not currently on any medicines. She first found out about her elevated blood pressure about 5 days ago. Patient states that since then she has been feeling well and has no other concerns or complaints. Patient states that she had a brief episode of dizziness initially, but that quickly resolved. She has been able to eat and drink without difficulty. She is urinating normally and having normal bowel movements. Patient is expressing a desire to leave at this time. She did drink 4-5 beers earlier today and smokes marijuana on occasion. Denies any headache, fever, head injury, neck pain, ortiz ges in vision/speech/mentation/hearing, URI, sore throat, chest pain, palpitations, syncope, cough, shortness of breath, wheeze, dyspnea, abdominal pain, nausea/vomiting/diarrhea, urinary retention, dysuria, hematuria, loss of control of bowel or bladder, numbness/tingling, saddle anesthesia, muscle paralysis/weakness, or rash. - Related Data Allergies/Adverse Reactions: paliperidone [From [employer]] Allergy (Verified 01/10/19 14:50) Home Medications: Rispridol. Trazadone Past Medical History - General Information source: Patient - Social History Smoking Status: Current Every Day Smoker Frequency of alcohol use: Heavy Drug Abuse: Marijuana Family History: Reviewed & Not Pertinent Patient has suicidal ideation: No Patient has homicidal ideation: No Renal/ Medical History: Denies: Hx Peritoneal Dialysis Psychiatric Medical History: Reports: Hx Bipolar Disorder, Hx Depression, Hx Schizophrenia Past Surgical History: Reports: Hx Section - Immunizations Hx Diphtheria, Pertussis, Tetanus Vaccination: Yes Hx Pneumococcal Vaccination: 01/10/15 Review of Systems - Review of Systems -: Yes All other systems reviewed and negative Physical Exam - Vital signs Vitals: Temp Pulse Resp BP Pulse Ox 98 F 80 16 105/62 96 01/28/19 12:04 01/28/19 12:04 01/28/19 12:04 01/28/19 12:04 01/28/19 12:04 - Notes Notes: PHYSICAL EXAMINATION: GENERAL: Well-appearing, well-nourished and in no acute distress. A&Ox4. Answers questions appropriately. HEAD: Atraumatic, normocephalic. EYES: Pupils equal round and reactive to light, extraocular movements intact, sclera anicteric, conjunctiva are normal. ENT: Nares patent and without discharge. oropharynx clear without exudates. No tonsilar hypertrophy or erythema. Moist mucous membranes. NECK: Normal range of motion, supple without lymphadenopathy LUNGS: Breath sounds clear to auscultation bilaterally and equal. No wheezes rales or rhonchi. HEART: Regular rate and rhythm without murmurs, rubs, gallops. ABDOMEN: Soft, nontender, nondistended abdomen. No guarding, no rebound. Normal bowel sounds present. No CVA tenderness bilaterally. Musculoskeletal: FROM to passive/active. Strength 5+/5. Camille neg. No asymmetry to LE's. Extremities: No cyanosis, clubbing, or edema b/l. Peripheral pulses 2+. Capillary refill less than 3 seconds. NEUROLOGICAL: Normal speech, normal gait. Cranial nerves grossly intact. PSYCH: Normal mood, normal affect. SKIN: Warm, Dry, normal turgor, no rashes or lesions noted. Course - Re-evaluation Re-evalutation: 01/28/19 15:14 Patient is an afebrile, well-hydrated 58-year-old female who presents to the ED with otherwise asymptomatic elevated blood pressure. Vitals are acceptable without any significant tachycardia, tachypnea, or hypoxia. No significant hyper/hypotension at this time. PE is otherwise unremarkable. Patient is nontoxic-appearing and is tolerating p.o. without any difficulties. Pt is currently asymptomatic. CBC, CMP, EKG/cardiac enzymes are all unremarkable for any acute pathology. Patient does not have any chest pain, dyspnea, or shortness of breath. Patient's presentation and symptomatology creates low suspicion for ACS, PE, pneumothorax, pericarditis, dissection, respiratory compromise, severe dehydration, sepsis, meningitis, or other systemic emergent condition at this time. Patient is aware that this condition can change from initial presentation and she needs to monitor symptoms closely and seek medical attention for any acute changes. Pt is feeling better and would like to go home. Recommend conservative measures for symptoms. Pt is not acutely intoxicated. She is able to communicate appropriately, make decisions for her self, and can ambulate without any instability. Recheck with your PCM in 2-3 days. Consider consult with Cardiology. Return to the ED with any worsening/concerning symptoms otherwise as reviewed in discharge. Patient is in agreement. - Vital Signs Vital signs: Temp Pulse Resp BP Pulse Ox 98 F 77 18 125/81 96 01/28/19 12:04 01/28/19 14:23 01/28/19 14:09 01/28/19 14:23 01/28/19 14:09 - Laboratory Result Diagrams: 01/28/19 13:27 01/28/19 13:27 Laboratory results interpreted by me: 01/28/19 01/28/19 01/28/19 13:14 13:27 13:27 Hgb 11.1 L Hct 34.0 L MCV 73 L MCH 23.8 L RDW 16.7 H Glucose 123 H Urine Urobilinogen 2.0 H Discharge - Discharge Clinical Impression: Elevated blood pressure reading Condition: Stable Disposition: HOME, SELF-CARE Additional Instructions: Maintain adequate fluid and food intake Take home medications as directed Low sodium/fat diet Exercise regularly Weight control Monitor blood pressure daily and keep a log Monitor symptoms for any acute changes Recheck with your PCM in 3-5 days Consider a follow-up with cardiology Return to the ED with any worsening symptoms and/or development of fever, headache, chest pain, palpitations, syncope, shortness of breath, trouble breathing, abdominal pain, n/v/d, blood in stool/urine, loss of control of bowel/bladder, urinary retention, muscle weakness/paralysis, numbness/tingling, or other worsening symptoms that are concerning to you. Referrals: JEFFREY SOSA MD [ACTIVE STAFF] - Follow up as needed
[2019-01-28 15:33] VITALS: BP 126/76
--- NOTE | 2019-01-30 02:15 | EKG REPORT ---
SEVERITY:- OTHERWISE NORMAL ECG - SINUS RHYTHM VENTRICULAR PREMATURE COMPLEX : Confirmed by: Octavio Mario 30-Jan-2019 02:14:30
== END 2019-01-28 15:33 | disposition home or self-care (01) ==
LOC: ER 11:57
DX: R03.0 Elevated blood-pressure reading, without diagnosis of hypertension (principal); R42 Dizziness and giddiness; Z79.899 Other long term (current) drug therapy; F17.200 Nicotine dependence, unspecified, uncomplicated
CPT/HCPCS: 36415; 80053; 81001; 82550; 82553; 84484; 85025; 93005; 93010; 99284

== ENCOUNTER 2019-02-16 12:50 | Emergency (ER) | payer MEDICAID ==
[2019-02-16 13:43] LABS: ABSOLUTE EOSINOPHILS # (AUTO) 0.1 10^3/uL (0.0-0.6); ABSOLUTE LYMPHOCYTES (AUTO) 1.2 10^3/uL (0.5-4.7); ABSOLUTE MONOCYTES (AUTO) 0.3 10^3/uL (0.1-1.4); ABSOLUTE NEUT (AUTO) 3.6 10^3/uL (1.7-8.2); BASOPHILS % (AUTO) 0.4 % (0-2); EOSINOPHILS % (AUTO) 1.5 % (0-6); HEMATOCRIT 34.4 % (36.0-47.0); HEMOGLOBIN 11.4 g/dL (12.0-15.5); LYMPHOCYTES % (AUTO) 23.1 % (13-45); MEAN CORPUSCULAR HEMOGLOBIN 24.2 pg (27.0-33.4); MEAN CORPUSCULAR HGB CONC 33.2 g/dL (32.0-36.0); MEAN CORPUSCULAR VOLUME 73 fl (80-97); MONOCYTES % (AUTO) 6.4 % (3-13); PLATELET COUNT 186 10^3/uL (150-450); RED BLOOD COUNT 4.72 10^6/uL (3.72-5.28); RED CELL DISTRIBUTION WIDTH 15.3 % (11.5-14.0); SEGMENTED NEUTROPHILS % (AUTO) 68.6 % (42-78); TOTAL CELLS COUNTED % (AUTO) 100 %; WHITE BLOOD COUNT 5.3 10^3/uL (4.0-10.5)
[2019-02-16 13:52] LABS: ALBUMIN 3.8 g/dL (3.5-5.0); ALKALINE PHOSPHATASE 98 U/L (38-126); ANION GAP 9 (5-19); ASPARTATE AMINO TRANSFERASE 32 U/L (14-36); BILIRUBIN,DIRECT 0.1 mg/dL (0.0-0.4); BILIRUBIN,TOTAL 0.3 mg/dL (0.2-1.3); BLOOD UREA NITROGEN 14 mg/dL (7-20); CALCIUM 8.9 mg/dL (8.4-10.2); CARBON DIOXIDE 25 mmol/L (22-30); CHLORIDE 104 mmol/L (98-107); GLUCOSE 132 mg/dL (75-110)
[2019-02-16 13:57] LABS: ACETAMINOPHEN < 10 ug/mL (10-30); ALCOHOL < 10 mg/dL (NONE DETECTED); SALICYLATE < 1.0 mg/dL (2.0-20.0)
[2019-02-16 14:47] LABS: APPEARANCE,URINE TURBID; BILIRUBIN,URINE NEGATIVE (NEGATIVE); COLOR,URINE AMBER; GLUCOSE, URINE NEGATIVE (NEGATIVE); KETONES,URINE NEGATIVE (NEGATIVE); LEUKOCYTE ESTERASE,URINE NEGATIVE (NEGATIVE); NITRITE,URINE NEGATIVE (NEGATIVE); PROTEIN,URINE NEGATIVE (NEGATIVE); URINE SPECIFIC GRAVITY 1.024; UROBILINOGEN,URINE NEGATIVE mg/dL (<2.0)
[2019-02-16 15:07] LABS: URINE AMPHETAMINES SCREEN NEGATIVE; URINE BARBITURATES SCREEN NEGATIVE; URINE BENZODIAZEPINES SCREEN NEGATIVE; URINE COCAINE SCREEN UNCONFIRMED POSITIVE; URINE MARIJUANA (THC) SCREEN NEGATIVE; URINE METHADONE SCREEN NEGATIVE; URINE PHENCYCLIDINE SCREEN NEGATIVE
--- NOTE | 2019-02-16 15:56 | ER Document Report ---
ED Psych Disorder / Suicide - General Chief Complaint: Psych Problem Stated Complaint: PSYCH Time Seen by Provider: 02/16/19 13:00 TRAVEL OUTSIDE OF THE [place] IN LAST 30 DAYS: No - HPI Notes: 58-year-old female who presents today with a complaint of depression and suicidal ideation. Patient states that she feels depressed because she recently lost 2 of her friends. She fell about walking into a car to be hit. She has no physical complaints at this time. She apparently walked to a stranger and told him she needed psychiatric evaluation. EMS was then called and she was brought to the emergency department. - Related Data Allergies/Adverse Reactions: paliperidone [From Invega] Allergy (Verified 01/10/19 14:50) Home Medications: trazadone, risperidol...unk rest of meds Past Medical History - Social History Smoking Status: Current Every Day Smoker Chew tobacco use (# tins/day): No Frequency of alcohol use: daily 4 beers Drug Abuse: None Family History: Reviewed & Not Pertinent Patient has suicidal ideation: Yes Patient has homicidal ideation: No Renal/ Medical History: Denies: Hx Peritoneal Dialysis Psychiatric Medical History: Reports: Hx Bipolar Disorder, Hx Depression, Hx Schizophrenia Past Surgical History: Reports: Hx Section - Immunizations Hx Diphtheria, Pertussis, Tetanus Vaccination: Yes Hx Pneumococcal Vaccination: 01/10/15 Review of Systems - Review of Systems Cardiovascular: denies: Chest pain Gastrointestinal: denies: Abdominal pain Neurological/Psychological: Depression, Suicidal ideation. denies: Dementia, Homicidal ideation -: Yes All other systems reviewed and negative Physical Exam - Vital signs Vitals: Temp Pulse Resp BP Pulse Ox 97.4 F 80 18 109/61 99 02/16/19 13:27 02/16/19 13:27 02/16/19 13:27 02/16/19 13:27 02/16/19 13:27 - General General appearance: Appears well, Alert - Respiratory Respiratory status: No respiratory distress Chest status: Nontender Breath sounds: Normal Chest palpation: Normal - Cardiovascular Rhythm: Regular Heart sounds: Normal auscultation Murmur: No - Abdominal Inspection: Normal Distension: No distension Bowel sounds: Normal Tenderness: Nontender Organomegaly: No organomegaly - Neurological Neuro grossly intact: Yes Cognition: Normal Orientation: AAOx4 [place] Coma Scale Eye Opening: Spontaneous [place] Coma Scale Verbal: Oriented [place] Coma Scale Motor: Obeys Commands [place] Coma Scale Total: 15 Speech: Normal Motor strength normal: LUE, RUE, LLE, RLE Sensory: Normal - Psychological Associated symptoms: Normal mood, Depressed, Flat affect, Other - Patient endorses suicidal ideation. Course - Re-evaluation Re-evalutation: 02/16/19 15:54 For suicidal thoughts, I will get behavioral health assessment done. Patient is medically cleared for behavioral health assessment. - Vital Signs Vital signs: Temp Pulse Resp BP Pulse Ox 97.4 F 80 18 109/61 99 02/16/19 13:27 02/16/19 13:27 02/16/19 13:27 02/16/19 13:27 02/16/19 13:27 - Laboratory Result Diagrams: 02/16/19 13:10 02/16/19 13:10 Laboratory results interpreted by me: 02/16/19 02/16/19 13:10 13:10 Hgb 11.4 L Hct 34.4 L MCV 73 L MCH 24.2 L RDW 15.3 H Glucose 132 H Salicylates < 1.0 L Acetaminophen < 10 L Discharge - Discharge Clinical Impression: Suicidal ideation Depression Qualifiers: Depression Type: unspecified Qualified Code(s): F32.9 - Major depressive disorder, single episode, unspecified Condition: Fair Disposition: OTHER
[2019-02-16] MEDS ORDERED: RISPERIDONE MICROSPHERES 25 MG/2 ML IM ONE (17:26)
[2019-02-16] MEDS: BENZTROPINE MESYLATE 1 MG TABLET PO SCH (18:38)
--- NOTE | 2019-02-16 22:38 | EKG REPORT ---
SEVERITY:- NORMAL ECG - SINUS RHYTHM : Confirmed by: Octavio Mario 16-Feb-2019 22:37:25
--- NOTE | 2019-02-17 07:02 | PSYCHOLOGICAL NOTE ---
Psych Note - Psych Note Date seen by psych provider: 02/16/19 Time seen by psych provider: 14:45 Psych Note: Patient is a 58 year old female brought in to the ED by EMS. Per EMS report, patient complains of depression and endorses suicidal ideation. Per report, patient states that she feels depressed because she recently lost 2 of her friends. Per report, patient stated she wanted to walk in front of a car. Patient, reportedly, apparently walked over to a stranger and told him she needed psychiatric evaluation. Patient has been seen by behavioral health prior. Clinician is unable to assess patient. Clinician attempted several times to see patient, however patient was seemingly asleep and unrousable to verbal stimuli. Patient receives [facility] from [facility]. Per chart review, this is baseline behavior for patient. Patient's urine drug screen is positive for cocaine. Patient has a noticeable body odor. Patient has gold glitter on her face. Medication recommendations per [facility] contracted psychiatrist Dr. Gold LYNNE is as follows: Risperdal Consta (IM) 25MG, one time Cognetin 1MG, daily Impression/Plan: Patient is not cleared from acute psychiatric services. Patient does meet IVC criteria per [place] GS 122C. Will assess tomorrow. Dr. Stout was consulted on the care and management of this patient; attending physician is in agreement with recommendations and disposition.
--- NOTE | 2019-02-17 09:55 | PSYCHOLOGICAL NOTE ---
Psych Note - Psych Note Date seen by psych provider: 02/17/19 Time seen by psych provider: 07:15 Psych Note: Chart review completed. Patient was sleeping when patient entered room. Patient was easily aroused by verbal stimuli. Patient states she "feels better," however continued to endorse suicidal and homicidal ideations. Patient stated "I need to stay here in the hospital." A few hours later, patient later approached clinician stating "I'm feeling much better and ready to go." Per chart review, this is patient's baseline. Patient typically presents to ED under the influence of illicit substances and claims SI/HI. Patient typically refuses substance abuse treatment. Impression/Plan: Patient is cleared from acute psychiatric services. Patient does not meet IVC criteria per [place] GS 122C. Patient has an extensive history of substance abuse and medication non compliance. Historically patient has not been agreeable to substance abuse treatment. Behaviors exhibited during this ED visit are typical. It is believed patient is at baseline. Patient was prescribed a long lasting antipsychotic. Patient receives mental health and medication management at [facility]. It is recommended that patient receive substance abuse treatment. It is also recommend that patient follow up with provider. Dr. Stout was consulted on the care and management of this patient; attending physician is in agreement with recommendations and disposition.
[2019-02-17] MEDS: BENZTROPINE MESYLATE 1 MG TABLET PO SCH (10:46)
--- NOTE | 2019-02-17 15:45 | ER Document Report ---
Doctor's Note Notes: 02/17/19 15:20 PHYSICAL EXAMINATION: GENERAL: Well-appearing and in no acute distress. HEAD: Atraumatic, normocephalic. EYES: sclera anicteric, conjunctiva are normal. ENT: nares patent. Moist mucous membranes. NECK: Normal range of motion, supple without lymphadenopathy LUNGS: CTAB and equal. No wheezes rales or rhonchi. HEART: Regular rate and rhythm without murmurs ABDOMEN: Soft, nontender, normal bowel sounds, no guarding. EXTREMITIES: Normal range of motion, no pitting edema. No cyanosis. BACK: No midline tenderness, no step-off or deformity. No CVA tenderness NEUROLOGICAL: Cranial nerves grossly intact. Normal speech. Normal gait. PSYCH: Normal mood, normal affect. SKIN: Warm, Dry, normal turgor, no rashes or lesions noted Patient reports having a concern about exposure to STD. Patient would like penicillin shot. Offered patient testing, patient declines any testing but would like prophylactic treatment for gonorrhea and chlamydia. Patient advised that this would include Rocephin injection and a azithromycin orally. Patient is agreeable with this at this time. Patient otherwise appears medically clear for stable or transfer pending mental health evaluation. 02/17/19 16:58 Mental health team states patient is ready to be discharged and does not meet IVC criteria. Patient was offered detox as she does have a history of cocaine abuse, patient declines needing treatment for substance abuse at this time.
[2019-02-17] MEDS ORDERED: AZITHROMYCIN 250 MG TABLET PO ONE (15:46)
[2019-02-17] MEDS ORDERED: LIDOCAINE 1% INJ (10 MG/ML) 10 ML MDV INJ ONE (15:46)
[2019-02-17] MEDS ORDERED: CEFTRIAXONE INJ 250 MG VIAL IM ONE (15:46)
[2019-02-17 17:22] VITALS: BP 155/86
== END 2019-02-17 17:23 | disposition home or self-care (01) ==
LOC: ER 12:50
DX: F32.9 Major depressive disorder, single episode, unspecified (principal); R45.851 Suicidal ideations; F17.200 Nicotine dependence, unspecified, uncomplicated; F20.9 Schizophrenia, unspecified; Z79.899 Other long term (current) drug therapy; Z88.8 Allergy status to other drugs, medicaments and biological substances
CPT/HCPCS: 93005; 99285; 96372; 36415; 80307 ×4; 85025; 80053; 81001; 93010; J3490 ×3; Q0144; J2794; J0696

== ENCOUNTER 2019-02-17 19:33 | Emergency (ER) | payer MEDICAID ==
[2019-02-17 19:55] VITALS: BP 137/76
--- NOTE | 2019-02-17 20:32 | ER Document Report ---
ED Medical Screen (RME) - General Chief Complaint: Dizziness Stated Complaint: DIZZINESS Time Seen by Provider: 02/17/19 20:29 Mode of Arrival: Ambulatory Information source: Patient Notes: 58-year-old female presented to ED for complaint of dizziness. She states she was discharged about 1638 this afternoon and was given a shot of Rocephin and a and 1000 milligrams of azithromycin just before discharge. States she got dizzy on the way to walk to the store after taking this medication. She states she called 911 and an ambulance brought her back to the emergency room. States she is still dizzy. Vital signs are stable at this time. She will get reevaluated. I have greeted and performed a rapid initial assessment of this patient. A comprehensive ED assessment and evaluation of the patient, analysis of test results and completion of medical decision making process will be conducted by an additional ED providers. TRAVEL OUTSIDE OF THE [place] IN LAST 30 DAYS: No - Related Data Allergies/Adverse Reactions: paliperidone [From Invega] Allergy (Verified 01/10/19 14:50) Past Medical History Renal/ Medical History: Denies: Hx Peritoneal Dialysis Psychiatric Medical History: Reports: Hx Bipolar Disorder, Hx Depression, Hx Schizophrenia Past Surgical History: Reports: Hx Section - Immunizations Hx Diphtheria, Pertussis, Tetanus Vaccination: Yes Physical Exam - Vital signs Vitals: Temp Pulse Resp BP Pulse Ox 98.4 F 73 18 137/76 H 97 02/17/19 19:54 02/17/19 19:54 02/17/19 19:54 02/17/19 19:54 02/17/19 19:54 Course - Vital Signs Vital signs: Temp Pulse Resp BP Pulse Ox 98.4 F 73 18 137/76 H 97 02/17/19 19:54 02/17/19 19:54 02/17/19 19:54 02/17/19 19:54 02/17/19 19:54
[2019-02-17 21:04] LABS: ABSOLUTE EOSINOPHILS # (AUTO) 0.1 10^3/uL (0.0-0.6); ABSOLUTE LYMPHOCYTES (AUTO) 1.5 10^3/uL (0.5-4.7); ABSOLUTE MONOCYTES (AUTO) 0.3 10^3/uL (0.1-1.4); BASOPHILS % (AUTO) 0.4 % (0-2); EOSINOPHILS % (AUTO) 1.5 % (0-6); HEMATOCRIT 37.4 % (36.0-47.0); HEMOGLOBIN 12.1 g/dL (12.0-15.5); LYMPHOCYTES % (AUTO) 30.8 % (13-45); MEAN CORPUSCULAR HEMOGLOBIN 23.7 pg (27.0-33.4); MEAN CORPUSCULAR HGB CONC 32.2 g/dL (32.0-36.0); MEAN CORPUSCULAR VOLUME 74 fl (80-97); MONOCYTES % (AUTO) 6.3 % (3-13); PLATELET COUNT 177 10^3/uL (150-450); RED BLOOD COUNT 5.08 10^6/uL (3.72-5.28); RED CELL DISTRIBUTION WIDTH 15.2 % (11.5-14.0); TOTAL CELLS COUNTED % (AUTO) 100 %; WHITE BLOOD COUNT 4.9 10^3/uL (4.0-10.5)
[2019-02-17 21:05] LABS: APPEARANCE,URINE CLEAR; BILIRUBIN,URINE NEGATIVE (NEGATIVE); COLOR,URINE STRAW; GLUCOSE, URINE NEGATIVE (NEGATIVE); KETONES,URINE NEGATIVE (NEGATIVE); PROTEIN,URINE NEGATIVE (NEGATIVE); UROBILINOGEN,URINE NEGATIVE mg/dL (<2.0)
[2019-02-17 21:18] LABS: URINE AMPHETAMINES SCREEN NEGATIVE; URINE BARBITURATES SCREEN NEGATIVE; URINE BENZODIAZEPINES SCREEN NEGATIVE; URINE COCAINE SCREEN UNCONFIRMED POSITIVE; URINE MARIJUANA (THC) SCREEN NEGATIVE; URINE METHADONE SCREEN NEGATIVE; URINE PHENCYCLIDINE SCREEN NEGATIVE
[2019-02-17 21:21] LABS: ALBUMIN 3.8 g/dL (3.5-5.0); ALKALINE PHOSPHATASE 72 U/L (38-126); ANION GAP 6 (5-19); ASPARTATE AMINO TRANSFERASE 26 U/L (14-36); BILIRUBIN,DIRECT 0.1 mg/dL (0.0-0.4); BILIRUBIN,TOTAL 0.4 mg/dL (0.2-1.3); BLOOD UREA NITROGEN 9 mg/dL (7-20); CALCIUM 8.9 mg/dL (8.4-10.2); CARBON DIOXIDE 28 mmol/L (22-30); CHLORIDE 103 mmol/L (98-107); GLUCOSE 124 mg/dL (75-110); TOTAL PROTEIN 7.1 g/dL (6.3-8.2)
[2019-02-17] MEDS ORDERED: MECLIZINE HCL 25 MG TABLET PO ONE (23:06)
--- NOTE | 2019-02-17 23:46 | ER Document Report ---
ED General - General Chief Complaint: Dizziness Stated Complaint: DIZZINESS Time Seen by Provider: 02/17/19 20:29 Mode of Arrival: Ambulatory Notes: 58-year-old female presents for easiness started while she was walking to [facility] being discharged from this ER as a psych hold. States dizziness feels like the room is spinning and is worse with standing and moving her head. States she called EMS and told him that she had no place to go. Patient is homeless. States she was given resources for shelters upon discharge however she states "the shelters are crowded." Denies chest pain, dyspnea, nausea, vomiting, fever, cough. Patient was also given azithromycin 1000 mg and Rocephin IM prior to discharge. Patient resting comfortably in bed. Denies SI or HI. TRAVEL OUTSIDE OF THE [place] IN LAST 30 DAYS: No - Related Data Allergies/Adverse Reactions: paliperidone [From Atilekt] Allergy (Verified 01/10/19 14:50) Past Medical History - General Information source: Patient - Social History Smoking Status: Current Every Day Smoker Chew tobacco use (# tins/day): No Frequency of alcohol use: Occasional Drug Abuse: None Family History: Reviewed & Not Pertinent Patient has suicidal ideation: No Patient has homicidal ideation: No Renal/ Medical History: Denies: Hx Peritoneal Dialysis Psychiatric Medical History: Reports: Hx Bipolar Disorder, Hx Depression, Hx Schizophrenia Past Surgical History: Reports: Hx Section - Immunizations Hx Diphtheria, Pertussis, Tetanus Vaccination: Yes Hx Pneumococcal Vaccination: 01/10/15 Review of Systems - Review of Systems Notes: Constitutional: Negative for fever. HENT: Negative for sore throat. Eyes: Negative for visual changes. Cardiovascular: Negative for chest pain. Respiratory: Negative for shortness of breath. Gastrointestinal: Negative for abdominal pain, vomiting or diarrhea. Genitourinary: Negative for dysuria. Musculoskeletal: Negative for back pain. Skin: Negative for rash. Neurological: Positive for dizziness. Negative for headaches, weakness or numbness. 10 point ROS negative except as marked above and in HPI. Physical Exam - Vital signs Vitals: Temp Pulse Resp BP Pulse Ox 98.4 F 73 18 137/76 H 97 02/17/19 19:54 02/17/19 19:54 02/17/19 19:54 02/17/19 19:54 02/17/19 19:54 - Notes Notes: GENERAL: Well-appearing, well-nourished and in no acute distress. Nontoxic HEAD: Atraumatic, normocephalic. EYES: Pupils pinpoint however reactive, extraocular movements intact, sclera anicteric, conjunctiva are normal. ENT: TMs normal, nares patent, oropharynx clear without exudates. Moist mucous membranes. NECK: Normal range of motion, supple without lymphadenopathy or JVD. LUNGS: Breath sounds clear to auscultation bilaterally and equal. No wheezes rales or rhonchi. HEART: Regular rate and rhythm without murmurs, rubs or gallops. ABDOMEN: Soft, nontender. No guarding, no rebound. No masses appreciated. EXTREMITIES: Normal range of motion, no pitting or edema. No clubbing or cyanosis. NEUROLOGICAL: Cranial nerves II through XII grossly intact. Normal speech, norm al gait. PSYCH: Normal mood, normal affect. SKIN: Warm, Dry, normal turgor, no rashes or lesions noted. Course - Re-evaluation Re-evalutation: 02/17/19 58-year-old female presents with vertigo type symptoms. Patient also states she has nowhere to go. Patient resting comfortably in bed. Denies SI or HI. EKG is unremarkable, no ST elevation. Lab work is within normal limits. UDS positive for cocaine however patient denies any drug use. - Vital Signs Vital signs: Temp Pulse Resp BP Pulse Ox 98.4 F 73 18 137/76 H 97 02/17/19 19:54 02/17/19 19:54 02/17/19 19:54 02/17/19 19:54 02/17/19 19:54 - Laboratory Result Diagrams: 02/17/19 20:46 02/17/19 20:46 Laboratory results interpreted by me: 02/17/19 02/17/19 20:46 20:46 MCV 74 L MCH 23.7 L RDW 15.2 H Glucose 124 H Discharge - Discharge Clinical Impression: Vertigo Disposition: HOME, SELF-CARE Instructions: Vertigo ([facility]), Meclizine ([facility]) Additional Instructions: Please follow up with PCP listed. Take meclizine as prescribed. Return to ER for any worsening symptoms, including worsening dizziness, vomiting, fever, or any other symptoms that are concerning to you. Referrals: SID BARNETT MD [ACTIVE STAFF] - Follow up as needed
--- NOTE | 2019-02-18 21:32 | EKG REPORT ---
SEVERITY:- ABNORMAL ECG - SINUS RHYTHM MULTIPLE VENTRICULAR PREMATURE COMPLEXES : Confirmed by: Octavio Mario 18-Feb-2019 21:31:03
== END 2019-02-18 00:37 | disposition home or self-care (01) ==
LOC: ER 19:33
DX: R42 Dizziness and giddiness (principal); Z59.0 Homelessness; F17.200 Nicotine dependence, unspecified, uncomplicated
CPT/HCPCS: 36415; 80053; 80307; 81001; 85025; 93005; 93010; 99283

== ENCOUNTER 2019-02-20 19:13 | Emergency (ER) | payer MEDICAID ==
[2019-02-20 20:11] LABS: ABSOLUTE EOSINOPHILS # (AUTO) 0.1 10^3/uL (0.0-0.6); ABSOLUTE LYMPHOCYTES (AUTO) 1.9 10^3/uL (0.5-4.7); ABSOLUTE MONOCYTES (AUTO) 0.3 10^3/uL (0.1-1.4); ABSOLUTE NEUT (AUTO) 3.1 10^3/uL (1.7-8.2); BASOPHILS % (AUTO) 0.3 % (0-2); EOSINOPHILS % (AUTO) 1.7 % (0-6); HEMATOCRIT 36.7 % (36.0-47.0); HEMOGLOBIN 11.8 g/dL (12.0-15.5); LYMPHOCYTES % (AUTO) 35.4 % (13-45); MEAN CORPUSCULAR HEMOGLOBIN 23.6 pg (27.0-33.4); MEAN CORPUSCULAR HGB CONC 32.1 g/dL (32.0-36.0); MEAN CORPUSCULAR VOLUME 74 fl (80-97); MONOCYTES % (AUTO) 5.2 % (3-13); PLATELET COUNT 197 10^3/uL (150-450); RED BLOOD COUNT 4.99 10^6/uL (3.72-5.28); RED CELL DISTRIBUTION WIDTH 15.2 % (11.5-14.0); SEGMENTED NEUTROPHILS % (AUTO) 57.4 % (42-78); TOTAL CELLS COUNTED % (AUTO) 100 %; WHITE BLOOD COUNT 5.4 10^3/uL (4.0-10.5)
[2019-02-20 20:28] LABS: ACETAMINOPHEN < 10 ug/mL (10-30); ALBUMIN 4.1 g/dL (3.5-5.0); ALCOHOL 130 mg/dL (NONE DETECTED); ALKALINE PHOSPHATASE 81 U/L (38-126); ANION GAP 16 (5-19); ASPARTATE AMINO TRANSFERASE 41 U/L (14-36); BILIRUBIN,DIRECT 0.1 mg/dL (0.0-0.4); BILIRUBIN,TOTAL 0.4 mg/dL (0.2-1.3); BLOOD UREA NITROGEN 10 mg/dL (7-20); CALCIUM 8.8 mg/dL (8.4-10.2); CARBON DIOXIDE 20 mmol/L (22-30); CHLORIDE 107 mmol/L (98-107); GLUCOSE 143 mg/dL (75-110); POTASSIUM 3.4 mmol/L (3.6-5.0); TOTAL PROTEIN 7.5 g/dL (6.3-8.2)
--- NOTE | 2019-02-20 21:12 | ER Document Report ---
ED General - General Chief Complaint: Psych Problem Stated Complaint: SUICIDAL IDEATION Time Seen by Provider: 02/20/19 19:30 Information source: Patient TRAVEL OUTSIDE OF THE [place] IN LAST 30 DAYS: No - HPI Notes: Patient presents stating that she is feeling suicidal. She states she is having thoughts of walking in the traffic because she is depressed and feels like killing herself. She states she has a history of schizophrenia but has been out of her medications. She says she is hearing voices but cannot understand what they are saying. She states she is seeing visions of monsters. Patient denies any type of alcohol or drug use. Patient states because she was scared she pain and herself with green children's pain. She states she did not eat it or inhale it. Patient symptoms have been severe. They have been constant. They appear to be made worse by stress and better without it. No known radiation of the symptoms. The symptoms consist mainly of depression and suicidal ideation with psychotic features. - Related Data Allergies/Adverse Reactions: paliperidone [From Invega] Allergy (Verified 01/10/19 14:50) Past Medical History - General Information source: Patient - Social History Smoking Status: Current Every Day Smoker Frequency of alcohol use: Occasional Drug Abuse: None Family History: Reviewed & Not Pertinent Renal/ Medical History: Denies: Hx Peritoneal Dialysis Psychiatric Medical History: Reports: Hx Bipolar Disorder, Hx Depression, Hx Schizophrenia Past Surgical History: Reports: Hx Section - Immunizations Hx Diphtheria, Pertussis, Tetanus Vaccination: Yes Hx Pneumococcal Vaccination: 01/10/15 Review of Systems - Review of Systems Constitutional: denies: Chills, Fever Cardiovascular: denies: Chest pain, Palpitations Respiratory: denies: Cough, Short of breath Gastrointestinal: denies: Abdominal pain, Vomiting -: Yes All other systems reviewed and negative Physical Exam - Vital signs Vitals: Temp Pulse Resp BP Pulse Ox 97.9 F 94 14 113/59 L 95 02/20/19 19:53 02/20/19 19:53 02/20/19 19:53 02/20/19 19:53 02/20/19 19:53 Interpretation: Normal - General General appearance: Appears well, Alert, Other - Patient hair is painted green as well as patient's feet and abdomen have a green paint on them. Patient states that she painted herself green because she was "scared. She states she used children's paint. In distress: None - HEENT Head: Normocephalic, Atraumatic Eyes: Normal Pupils: PERRL - Respiratory Respiratory status: No respiratory distress Chest status: Nontender Breath sounds: Normal Chest palpation: Normal - Cardiovascular Rhythm: Regular Heart sounds: Normal auscultation Murmur: No - Abdominal Inspection: Normal Distension: No distension Bowel sounds: Normal Tenderness: Nontender Organomegaly: No organomegaly - Back Back: Normal, Nontender - Extremities General upper extremity: Normal inspection, Nontender, Normal color, Normal ROM, Normal temperature General lower extremity: Normal inspection, Nontender, Normal color, Normal ROM, Normal temperature, Normal weight bearing. No: Camille's sign - Neurological Neuro grossly intact: Yes Cognition: Normal Orientation: AAOx4 [place]arte Coma Scale Eye Opening: Spontaneous [place] Coma Scale Verbal: Oriented [place] Coma Scale Motor: Obeys Commands Duarte Coma Scale Total: 15 Speech: Normal Motor strength normal: LUE, RUE, LLE, RLE Sensory: Normal - Psychological Associated symptoms: Anxious, Circumferential speech, Flight of ideas - Skin Skin Temperature: Warm Skin Moisture: Dry Skin Color: Normal Course - Re-evaluation Re-evalutation: 02/20/19 21:09 Patient presents with suicidal ideation as well as flight of ideas. She does have pressured speech and states she is been diagnosed with bipolar and schizophrenia in the past. She states she does have active suicidal ideation. She also states she is hearing voices and seeing monsters and snakes. Patient states she does not have any of her medications at home. She states that she needs help. Work-up is remarkable for an elevated alcohol level. Laboratories otherwise unremarkable. Patient has been placed on involuntary commitment. 02/20/19 21:11 02/20/19 21:12 - Vital Signs Vital signs: Temp Pulse Resp BP Pulse Ox 97.9 F 94 14 113/59 L 95 02/20/19 19:53 02/20/19 19:53 02/20/19 19:53 02/20/19 19:53 02/20/19 19:53 - Laboratory Result Diagrams: 02/20/19 19:47 02/20/19 19:47 Laboratory results interpreted by me: 02/20/19 02/20/19 19:47 19:47 Hgb 11.8 L MCV 74 L MCH 23.6 L RDW 15.2 H Potassium 3.4 L Carbon Dioxide 20 L Glucose 143 H AST 41 H Salicylates 1.0 L Acetaminophen < 10 L Discharge - Discharge Clinical Impression: Schizophrenia, acute, Suicidal ideation Depression Qualifiers: Depression Type: major depressive disorder Major depression recurrence: recurrent Active/Remission status: currently active Major depression episode severity: severe Psychotic features: with psychotic features Qualified Code(s): F33.3 - Major depressive disorder, recurrent, severe with psychotic symptoms Alcohol intoxication Qualifiers: Complication of substance-induced condition: uncomplicated Qualified Code(s): F10.920 - Alcohol use, unspecified with intoxication, uncomplicated Condition: Serious Disposition: PSYCH HOSP/UNIT
[2019-02-20 21:20] LABS: AMORPHOUS SEDIMENT,URINE TRACE /HPF; APPEARANCE,URINE SLIGHTLY-CLOUDY; BILIRUBIN,URINE NEGATIVE (NEGATIVE); COLOR,URINE YELLOW; GLUCOSE, URINE NEGATIVE (NEGATIVE); KETONES,URINE NEGATIVE (NEGATIVE); LEUKOCYTE ESTERASE,URINE SMALL (NEGATIVE); NITRITE,URINE NEGATIVE (NEGATIVE); PROTEIN,URINE 30 mg/dL (NEGATIVE); URINE SPECIFIC GRAVITY 1.021; UROBILINOGEN,URINE NEGATIVE mg/dL (<2.0)
[2019-02-20 21:30] LABS: URINE AMPHETAMINES SCREEN NEGATIVE; URINE BARBITURATES SCREEN NEGATIVE; URINE BENZODIAZEPINES SCREEN NEGATIVE; URINE COCAINE SCREEN UNCONFIRMED POSITIVE; URINE MARIJUANA (THC) SCREEN NEGATIVE; URINE METHADONE SCREEN NEGATIVE; URINE PHENCYCLIDINE SCREEN NEGATIVE
--- NOTE | 2019-02-21 00:05 | EKG REPORT ---
SEVERITY:- NORMAL ECG - SINUS RHYTHM : Confirmed by: Kari Porter MD 21-Feb-2019 00:04:34
[2019-02-21 06:28] VITALS: BP 118/74
--- NOTE | 2019-02-21 10:30 | PSYCHOLOGICAL NOTE ---
Psych Note - Psych Note Date seen by psych provider: 02/21/19 Time seen by psych provider: 09:10 Psych Note: Reason for Consult: Depression pt stating she has been feeling depressed lately. reports she is seen at [facility] and given Risperdal 50mg injections every 2 weeks. States she is not homicidal or having suicidal thoughts. Pt has green paint in her hair, armpits, legs and hands. When questioned she reports that when she gets depressed she likes to paint anything to include herself. Patient reports she has been depressed but admitts it is because she has been drinking. Patient asks if it is nice outside and if the sun is shining. She reports if the sun is shining, "that sounds good" and would like to leave but if it is not "I thinking I need to stay." Patient confirms she still goes to [facility] and has been taking her medication as perscribed. Se denies any thoughts of wanting to harm herself. Patient was alert and oriented to person, place, time and situation. Mood was euthymic with congruent affect. Patient is noted to have pant on all parts of her body that has hair. Clinician notes this is normal physical presentation for patient; she frequently has paint on her hair. This has not caused her harm or others harm. She denied current suicidal and homicidal ideation. Patient is not demonstrating any behaviours indicating she is responding to internal stimuli as evidenced by fair eye contact, answering questions appropriately when addressed, and her ability to express her needs and wants. Thought processes were linear and organized (again suggesting no psychosis). Conversational speech was within normal limits for rate, tone and prosody. Intellectual abilities are estimated to be average. attention and concentration are fair. Insight, judgment and impulse control were fair. 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 Patient does not meet IVC criteria per [place] GS 122C. She is not demonstrating any beha viors indicating she is responding to internal stimuli i.e. she makes good eye contact, she has normal conversational speech, and has linear and organized thought processes. Patient is able to verbalize very clearly her thoughts of wantig to stay out of the inclement weather. Patient declines assistance for sobriety from alcohol and cocaine; this is a long-standing addiction for this patient. It is also noted the patient is homeless in travels between [place] and [place]. Clinician notes patient appears to have paint both in her hair and over her eyelids, as if it was eye shadow. This is a frequent occurrence as the patient has been seen on multiple occasions and appears to be her baseline physical presentation. When asked she reports that she paints her hair to dye it and reports she wears it as makeup. Dr. Stout was consulted on the care and management of this patient; attending physician is in agreement with recommendations.
--- NOTE | 2019-02-21 11:44 | ER Document Report ---
Doctor's Note Notes: 02/21/19 11:42 Patient's vital signs and previous labs, diagnostic images reviewed. Reviewed mental health notes, nurse's notes and previous providers notes. VSS. Pt is in no distress at this time. Denies any SI or HI. Mental health has been at bedside and feels that patient is appropriate for discharge. Pt denies any desire to use illicit substances. General: A&Ox3. Answers questions appropriately. Heart: RRR Lungs: CTAB Psych: Flat affect A/P: Continue monitoring and rec's per MH. Normal diet will culture urine due to small leukoesterase, negative for nitrates Consider discharge home with close follow up with pcp and mental health provider within 24-48 hours
--- NOTE | 2019-02-21 13:56 | ER Document Report ---
Doctor's Note Notes: 02/21/19 13:55 58-year-old female with past medical history of intermittent suicidal ideations without a plan with positive cocaine and alcohol as recorded, with currently no suicidal ideations cleared by the psychology team with no concerns about active suicidality. They have provided outpatient follow-up recommendations.
== END 2019-02-21 15:51 | disposition home or self-care (01) ==
LOC: ER 19:13
DX: R45.851 Suicidal ideations (principal); F23 Brief psychotic disorder; F33.3 Major depressive disorder, recurrent, severe with psychotic symptoms; F10.920 Alcohol use, unspecified with intoxication, uncomplicated; F14.10 Cocaine abuse, uncomplicated
CPT/HCPCS: 36415; 80053; 80307; 81001; 85025; 87086; 87088; 93005; 93010; 99285

== ENCOUNTER 2019-03-20 21:25 | Emergency (ER) | payer OTHER ==
[2019-03-20 22:51] LABS: ABSOLUTE EOSINOPHILS # (AUTO) 0.1 10^3/uL (0.0-0.6); ABSOLUTE LYMPHOCYTES (AUTO) 1.7 10^3/uL (0.5-4.7); ABSOLUTE MONOCYTES (AUTO) 0.3 10^3/uL (0.1-1.4); BASOPHILS % (AUTO) 0.3 % (0-2); EOSINOPHILS % (AUTO) 1.3 % (0-6); HEMATOCRIT 36.3 % (36.0-47.0); HEMOGLOBIN 11.8 g/dL (12.0-15.5); LYMPHOCYTES % (AUTO) 33.7 % (13-45); MEAN CORPUSCULAR HEMOGLOBIN 23.3 pg (27.0-33.4); MEAN CORPUSCULAR HGB CONC 32.5 g/dL (32.0-36.0); MEAN CORPUSCULAR VOLUME 72 fl (80-97); MONOCYTES % (AUTO) 5.7 % (3-13); PLATELET COUNT 174 10^3/uL (150-450); RED BLOOD COUNT 5.07 10^6/uL (3.72-5.28); RED CELL DISTRIBUTION WIDTH 13.8 % (11.5-14.0); TOTAL CELLS COUNTED % (AUTO) 100 %; WHITE BLOOD COUNT 5.1 10^3/uL (4.0-10.5)
--- NOTE | 2019-03-20 23:06 | EKG REPORT ---
SEVERITY:- NORMAL ECG - SINUS RHYTHM : Confirmed by: Sanket Cerrato MD 20-Mar-2019 23:05:31
[2019-03-20 23:11] LABS: APPEARANCE,URINE CLEAR; BILIRUBIN,URINE NEGATIVE (NEGATIVE); COLOR,URINE YELLOW; GLUCOSE, URINE NEGATIVE (NEGATIVE); KETONES,URINE NEGATIVE (NEGATIVE); LEUKOCYTE ESTERASE,URINE SMALL (NEGATIVE); NITRITE,URINE NEGATIVE (NEGATIVE); PROTEIN,URINE NEGATIVE (NEGATIVE); URINE SPECIFIC GRAVITY 1.017; UROBILINOGEN,URINE NEGATIVE mg/dL (<2.0)
[2019-03-20 23:22] LABS: URINE AMPHETAMINES SCREEN NEGATIVE; URINE BARBITURATES SCREEN NEGATIVE; URINE BENZODIAZEPINES SCREEN NEGATIVE; URINE MARIJUANA (THC) SCREEN NEGATIVE; URINE METHADONE SCREEN NEGATIVE; URINE PHENCYCLIDINE SCREEN NEGATIVE
[2019-03-20 23:24] LABS: URINE COCAINE SCREEN UNCONFIRMED POSITIVE
[2019-03-20 23:30] LABS: ALBUMIN 4.2 g/dL (3.5-5.0); ALCOHOL 26 mg/dL (NONE DETECTED); ALKALINE PHOSPHATASE 72 U/L (38-126); ANION GAP 11 (5-19); ASPARTATE AMINO TRANSFERASE 38 U/L (14-36); BILIRUBIN,DIRECT 0.1 mg/dL (0.0-0.4); BILIRUBIN,TOTAL 0.6 mg/dL (0.2-1.3); BLOOD UREA NITROGEN 10 mg/dL (7-20); CARBON DIOXIDE 26 mmol/L (22-30); CHLORIDE 102 mmol/L (98-107); GLUCOSE 89 mg/dL (75-110); POTASSIUM 3.8 mmol/L (3.6-5.0); TOTAL PROTEIN 7.7 g/dL (6.3-8.2)
[2019-03-20 23:32] LABS: ACETAMINOPHEN < 10 ug/mL (10-30); SALICYLATE < 1.0 mg/dL (2.0-20.0)
--- NOTE | 2019-03-21 01:24 | ER Document Report ---
ED General - General Chief Complaint: Psych Problem Stated Complaint: MENTAL HEALTH CONCERNS Time Seen by Provider: 03/21/19 00:55 TRAVEL OUTSIDE OF THE U.S. IN LAST 30 DAYS: No - HPI Notes: 59-year-old female frequent ER visitor with long standing history of bipolar disorder and abuse of cocaine alcohol and marijuana seen at this time because she feels anxious and has been experiencing auditory hallucinations telling her that she cannot stay by herself and that she is worthless. She has had recurren t thoughts of committing suicide and is considered walking in front of a car to call persist. Endorses consumption of about 4 cans of beer in the last 12 hours. She was evasive when I asked her directly about cocaine. She denies any homicidal ideation. She apparently has been getting some kind of a long-acting antipsychotic injection at [facility] in [facility]. Unclear whether she has maintained appropriate dosing on this. She says she takes several other oral medications but did not bring these in and were not able to immediately identify these tonight. She says she "usually takes it". - Related Data Allergies/Adverse Reactions: paliperidone [From Invega] Allergy (Verified 01/10/19 14:50) Home Medications: 2mg Risperdal Past Medical History - General Information source: Patient - Social History Smoking Status: Current Every Day Smoker - 1 pack/day Frequency of alcohol use: Heavy Family History: Reviewed & Not Pertinent Patient has suicidal ideation: No Patient has homicidal ideation: No Renal/ Medical History: Denies: Hx Peritoneal Dialysis Psychiatric Medical History: Reports: Hx Bipolar Disorder, Hx Depression, Hx Schizophrenia Past Surgical History: Reports: Hx Section - Immunizations Hx Diphtheria, Pertussis, Tetanus Vaccination: Yes Hx Pneumococcal Vaccination: 01/10/15 Review of Systems - Review of Systems Notes: Constitutional: Negative for fever. HENT: Negative for sore throat. Eyes: Negative for visual changes. Cardiovascular: Negative for chest pain. Respiratory: Negative for shortness of breath. Gastrointestinal: Negative for abdominal pain, vomiting or diarrhea. Genitourinary: Negative for dysuria. Musculoskeletal: Negative for back pain. Skin: Negative for rash. Neurological: Negative for headaches, weakness or numbness. 10 point ROS negative except as marked above and in HPI. Physical Exam - Vital signs Vitals: Temp Pulse Resp BP Pulse Ox 97.4 F 71 18 125/70 96 03/20/19 22:30 03/20/19 22:30 03/20/19 22:30 03/20/19 22:30 03/20/19 22:30 - Notes Notes: GENERAL: Somewhat obese female of approximately stated age appearing mildly anxious but otherwise in no acute distress. Patient is noted to have an extremely exaggerated amount of eye make-up present. SKIN: Good turgor no rashes. HEAD: Normocephalic atraumatic. EYES: PERRLA. EOMI. Conjunctivae and sclerae clear. EARS: CANALS AND TMS CLEAR. NOSE: CLEAR. MOUTH: Moist mucosa. Good dentition. No stridor or edema. No drooling. NECK: Supple. No masses or thyromegaly. No adenopathy. Carotids 2+ without bruits. No JVD. BACK: Symmetrical without tenderness. CHEST: Respirations unlabored. Breath sounds clear and symmetrical. HEART: Regular rhythm. No murmur gallop or rub. ABDOMEN: Obese. Healed low midline surgical scar present. Soft nontender without masses, organomegaly or rebound. Bowel sounds normally active. No bruits. GENITALIA: Deferred. EXTREMITIES: No edema. No calf tenderness. Cap refill less than 1.5 seconds. Dorsalis pedis and posterior tibial pulses 3+ and symmetrical. NEUROLOGICAL: GCS 15. Alert and oriented x3. Normal gait. Fluent speech mildly slurred. Cranial nerves II through XII intact. Sensorimotor and cerebellar normal. Normal tone. Psychiatric: Slightly anxious. Flight of ideas. Course - Re-evaluation Re-evalutation: 03/21/19 01:24 Urine drug screen positive for cocaine. Blood alcohol was 24. This is probably exacerbation of her primary affect of disorder related to persistent cocaine abuse. At any rate she is expressing suicidal ideation with a plan at this time and I will therefore petition for IVC. - Vital Signs Vital signs: Temp Pulse Resp BP Pulse Ox 97.4 F 71 18 125/70 96 03/20/19 22:44 03/20/19 22:44 03/20/19 22:44 03/20/19 22:44 03/20/19 22:44 - Laboratory Result Diagrams: 03/20/19 22:35 03/20/19 22:35 Laboratory results interpreted by me: 03/20/19 03/20/19 03/20/19 22:35 22:35 22:35 Hgb 11.8 L MCV 72 L MCH 23.3 L AST 38 H Urine Blood SMALL H Ur Leukocyte Esterase SMALL H Salicylates < 1.0 L Acetaminophen < 10 L - EKG Interpretation by Me Additional EKG results interpreted by me: 03/21/19 01:27 Normal sinus rhythm rate 73. Normal axis. Discharge - Discharge Clinical Impression: Cocaine abuse, Suicidal ideation Bipolar disorder Qualifiers: Active/Remission status: remission status unspecified Qualified Code(s): F31.9 - Bipolar disorder, unspecified Condition: Stable Disposition: PSYCH HOSP/UNIT
--- NOTE | 2019-03-21 12:30 | ER Document Report ---
Doctor's Note Notes: 03/21/19 12:28 As the rounding provider this AM, I assessed the patient's labs, vitals, and records. No concerning findings this morning. Patient was sleeping comfortably in the bed when I walked by. I will follow-up with her later in the afternoon. 03/21/19 14:09 I was told by [place] school bus attendant, that the patient was already discharged prior to me formally evaluating her this morning. I asked the nurse why the patient was discharged because rescinding paperwork had not yet been signed and she was told that the mental health clinician said that "after she eats she is good to get discharged". It is unclear who relayed this message or why the patient was discharged. I was unable to formally assess her to deem her appropriate for discharge. 03/21/19 17:14 I clarified with Chapin, medical social consultant. She said that the patient was moved to a different room and that she was preparing her discharge paperwork. A PCT and made a comment about discharging her and Chapin mention to at least give her time to eat her lunch. Somehow the information was relayed to the nurse who was under the impression that the patient is to be discharged. Unclear who printed discharge paperwork but it was not myself.
--- NOTE | 2019-03-21 12:52 | PSYCHOLOGICAL NOTE ---
Psych Note - Psych Note Date seen by psych provider: 03/21/19 Time seen by psych provider: 09:00 Psych Note: Reason for Consult: Depression Patient reports she has been feeling depressed because she has been missing her mother and it is the holidays. Patient reports that she feels that she needs 1 more day but would actually like to stay until Wednesday. She confirms that she continues to receive her outpatient mental health services through [facility]. She states she takes her medications as directed. Patient was alert and oriented to person, place, time and situation. Mood was euthymic with congruent affect. Patient is noted to have paint on on her eyebrows as if it is eye shadow. There also appears to be some residual green paint in her hair; this was noted during her February visit. Clinician notes this is normal physical presentation for patient; she frequently has paint on her hair. This has not caused her harm or others harm. She denied current suicidal and homicidal ideation. Patient is not demonstrating any behaviours indicating she is responding to internal stimuli as evidenced by fair eye contact, answering questions appropriately when addressed, and her ability to express her needs and wants. Thought processes were linear and organized (again suggesting no psychosis). Conversational speech was within normal limits for rate, tone and prosody. Intellectual abilities are estimated to be average. attention and concentration are fair. Insight, judgment and impulse control were fair. 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 Patient does not meet IVC criteria per [place] GS 122C. She is not demonstrating any behaviors indicating she is responding to internal stimuli i.e. she makes good eye contact, she has normal conversational speech, and has linear and organized thought processes. Patient is able to verbalize very clearly her thoughts of wanting to stay through until Wednesday. Patient declines assistance for sobriety from alcohol and cocaine; this is a long-standing addiction for this patient. It is also noted the patient is homeless in travels between [place] and [place]. Clinician notes patient appears to have paint both in her hair and over her eyelids, as if it was eye shadow. This is a frequent occurrence as the patient has been seen on multiple occasions and appears to be her baseline physical presentation. When asked she reports that she paints her hair to dye it and reports she wears it as makeup. Dr. Stout was consulted on the care and management of this patient; attending physician is in agreement with recommendations.
[2019-03-21 13:22] VITALS: BP 114/63
== END 2019-03-21 13:21 | disposition home or self-care (01) ==
LOC: ER 21:25
DX: F14.10 Cocaine abuse, uncomplicated (principal); F31.9 Bipolar disorder, unspecified; R45.851 Suicidal ideations; R47.81 Slurred speech; R44.0 Auditory hallucinations; F17.200 Nicotine dependence, unspecified, uncomplicated; E66.9 Obesity, unspecified; Z79.899 Other long term (current) drug therapy; Z88.8 Allergy status to other drugs, medicaments and biological substances
CPT/HCPCS: 36415; 80053; 80307; 81001; 85025; 93005; 93010; 99285

== ENCOUNTER 2019-04-28 18:13 | Emergency (ER) | payer MEDICAID ==
[2019-04-28 18:32] LABS: ABSOLUTE EOSINOPHILS # (AUTO) 0.1 10^3/uL (0.0-0.6); ABSOLUTE LYMPHOCYTES (AUTO) 1.5 10^3/uL (0.5-4.7); ABSOLUTE MONOCYTES (AUTO) 0.3 10^3/uL (0.1-1.4); ABSOLUTE NEUT (AUTO) 3.9 10^3/uL (1.7-8.2); BASOPHILS % (AUTO) 0.6 % (0-2); EOSINOPHILS % (AUTO) 1.9 % (0-6); HEMATOCRIT 35.7 % (36.0-47.0); HEMOGLOBIN 11.6 g/dL (12.0-15.5); LYMPHOCYTES % (AUTO) 26.4 % (13-45); MEAN CORPUSCULAR HGB CONC 32.5 g/dL (32.0-36.0); MEAN CORPUSCULAR VOLUME 71 fl (80-97); MONOCYTES % (AUTO) 4.9 % (3-13); PLATELET COUNT 189 10^3/uL (150-450); RED BLOOD COUNT 5.07 10^6/uL (3.72-5.28); RED CELL DISTRIBUTION WIDTH 15.7 % (11.5-14.0); SEGMENTED NEUTROPHILS % (AUTO) 66.2 % (42-78); TOTAL CELLS COUNTED % (AUTO) 100 %; WHITE BLOOD COUNT 5.8 10^3/uL (4.0-10.5)
[2019-04-28 18:50] LABS: ACETAMINOPHEN < 10 ug/mL (10-30); ALBUMIN 3.7 g/dL (3.5-5.0); ALCOHOL 40 mg/dL (NONE DETECTED); ALKALINE PHOSPHATASE 84 U/L (38-126); ANION GAP 6 (5-19); ASPARTATE AMINO TRANSFERASE 46 U/L (14-36); BILIRUBIN,TOTAL 0.2 mg/dL (0.2-1.3); BLOOD UREA NITROGEN 11 mg/dL (7-20); CALCIUM 9.2 mg/dL (8.4-10.2); CARBON DIOXIDE 25 mmol/L (22-30); CHLORIDE 104 mmol/L (98-107); GLUCOSE 111 mg/dL (75-110); POTASSIUM 3.8 mmol/L (3.6-5.0); SALICYLATE < 1.0 mg/dL (2.0-20.0); TOTAL PROTEIN 6.9 g/dL (6.3-8.2)
[2019-04-28 19:36] LABS: APPEARANCE,URINE CLEAR; BILIRUBIN,URINE NEGATIVE (NEGATIVE); COLOR,URINE YELLOW; GLUCOSE, URINE NEGATIVE (NEGATIVE); KETONES,URINE NEGATIVE (NEGATIVE); LEUKOCYTE ESTERASE,URINE NEGATIVE (NEGATIVE); NITRITE,URINE NEGATIVE (NEGATIVE); PROTEIN,URINE NEGATIVE (NEGATIVE); URINE SPECIFIC GRAVITY 1.013; UROBILINOGEN,URINE NEGATIVE mg/dL (<2.0)
[2019-04-28 19:50] LABS: URINE AMPHETAMINES SCREEN NEGATIVE; URINE BARBITURATES SCREEN NEGATIVE; URINE BENZODIAZEPINES SCREEN NEGATIVE; URINE MARIJUANA (THC) SCREEN NEGATIVE; URINE METHADONE SCREEN NEGATIVE; URINE PHENCYCLIDINE SCREEN NEGATIVE
[2019-04-28 19:51] LABS: URINE COCAINE SCREEN UNCONFIRMED POSITIVE
--- NOTE | 2019-04-28 19:51 | ER Document Report ---
ED Psych Disorder / Suicide - General Mode of Arrival: Ambulatory Information source: Patient TRAVEL OUTSIDE OF THE U.S. IN LAST 30 DAYS: No <LISA LOPEZ - Last Filed: 04/29/19 01:17> <XIAO ROSS - Last Filed: 04/29/19 17:12> - General Chief Complaint: Psych Problem Stated Complaint: PSYCH Time Seen by Provider: 04/28/19 19:16 Notes: 59-year-old woman presents to the emergency department complaining of depression, shakiness, anxiety and feeling suicidal. States that she has had a symptoms for the past 3 days, has had a history of suicidal ideations in the past. She denies any new stressors which might have exacerbated symptoms. (LISA LOEPZ) - Related Data Allergies/Adverse Reactions: paliperidone [From Invega] Allergy (Verified 01/10/19 14:50) Past Medical History - Social History Smoking Status: Never Smoker Chew tobacco use (# tins/day): No Frequency of alcohol use: None Drug Abuse: None Family History: Reviewed & Not Pertinent Patient has suicidal ideation: Yes Patient has homicidal ideation: No Renal/ Medical History: Denies: Hx Peritoneal Dialysis Psychiatric Medical History: Reports: Hx Bipolar Disorder, Hx Depression, Hx Schizophrenia Past Surgical History: Reports: Hx Section - Immunizations Hx Diphtheria, Pertussis, Tetanus Vaccination: Yes Hx Pneumococcal Vaccination: 01/10/15 <LISA LOPEZ - Last Filed: 04/29/19 01:17> Review of Systems <LISA LOPEZ - Last Filed: 04/29/19 01:17> - Review of Systems Notes: Constitutional: Negative for fever. HENT: Negative for sore throat. Eyes: Negative for visual changes. Cardiovascular: Negative for chest pain. Respiratory: Negative for shortness of breath. Gastrointestinal: Negative for abdominal pain, vomiting or diarrhea. Genitourinary: Negative for dysuria. Musculoskeletal: Negative for back pain. Skin: Negative for rash. Neurological: Negative for headaches, weakness or numbness. Psychiatric: + Depression, + suicidal ideation 10 point ROS negative except as marked above and in HPI. (LISA LOPEZ) Physical Exam <LISA LOPEZ - Last Filed: 04/29/19 01:17> - Vital signs Vitals: Temp Pulse Resp BP Pulse Ox 98.2 F 80 20 138/75 H 98 01/18/20 00:25 04/29/19 00:25 04/29/19 00:25 04/29/19 00:25 04/29/19 00:25 - Notes Notes: PHYSICAL EXAMINATION: Physical Exam: General: Well-nourished well-developed female in no acute distress HEENT: NC/AT, pupils equal round and reactive to light, MM moist,nares clear, Neck: supple, no adenopathy, no masses. Lungs: clear, no wheezing, no rales no rhonchi CVS: Regular rate and rhythm no murmur gallop or rub Abdomen: Soft active nontender, no masses, no hepatosplenomegaly Ext: No edema clubbing or cyanosis. Neuro: Alert and responsive, moving all 4 extremities on command, cranial nerves intact. Skin: Intact no open lesions, no rash PSYCH: Poor eye contact, flat affect, suicidal ideation, denies homicidal ideation or visual/auditory hallucinations. (LISA LOPEZ) Course - Laboratory Result Diagrams: 04/28/19 18:03 04/28/19 18:03 - EKG Interpretation by Co EKG shows normal: Sinus rhythm Rate: Normal - Normal sinus rhythm, no acute ST or T wave abnormalities, rate of 69 <LISA LOPEZ - Last Filed: 04/29/19 01:17> - Laboratory Result Diagrams: 04/28/19 18:03 04/28/19 18:03 <XIAO ROSS - Last Filed: 04/29/19 17:12> - Re-evaluation Re-evalutation: 04/29/19 01:20 Patient is positive for cocaine on the urine tox screen, while she verbalizes depression and suicidality, will await reassessment in the a.m. post acute substance use. Will hold without involuntary commitment at this time. (LISA LOPEZ) - Vital Signs Vital signs: Temp Pulse Resp BP Pulse Ox 98.3 F 82 20 135/79 H 98 04/29/19 07:04 04/29/19 07:04 04/29/19 07:04 04/29/19 07:04 04/29/19 07:04 - Laboratory Laboratory results interpreted by id: 04/28/19 04/28/19 18:03 18:03 Hgb 11.6 L Hct 35.7 L MCV 71 L MCH 23.0 L RDW 15.7 H Sodium 135.4 L Glucose 111 H AST 46 H Salicylates < 1.0 L Acetaminophen < 10 L 04/29/19 01:19 I have reviewed laboratory data and used this information for the treatment decisions regarding the patient. (LISA LOPEZ) Discharge <LISA LOPEZ - Last Filed: 04/29/19 01:17> <XIAO ROSS - Last Filed: 04/29/19 17:12> - Discharge Clinical Impression: Anxiety, Suicidal ideation, Cocaine use Depression Qualifiers: Depression Type: unspecified Qualified Code(s): F32.9 - Major depressive disorder, single episode, unspecified Condition: Stable Disposition: HOME, SELF-CARE Additional Instructions: You have been evaluated by both medical and behavioral health teams and have been deemed appropriate for discharge. Please follow-up with Lorena, who is your identified mental health provider. Have elected to voluntarily seek treatment through [facility] center. You are highly encouraged to follow through with this opportunity. COCAINE ABUSE: Cocaine causes many dangerous medical problems. Problems can occur even with "usual" amounts. Cocaine affects judgement, creating a sense of invulnerability. Cocaine users often make bad decisions that seem "great" at th e time. Most cocaine users eventually will be hurt by bad job performance, damaged personal relations, crime, and unsafe sexual practices. Toxic effects of cocaine can include seizures, hallucinations, delusions, high blood pressure, heart damage, or sudden . There's always the risk of a "bad batch." But heart attacks, brain hemorrhages, or cardiac arrest can occur unpredictably even with "normal" use. Injection of cocaine is risky for abscesses, endocarditis (heart infection), pneumonia, and AIDS. Withdrawal from cocaine often causes anxiety and drug cravings. Some users become paranoid and psychotic. Many treatment programs are available, but you must make the decision to quit. Medication can be prescribed to control the symptoms of cocaine toxicity (beta blockers or benzodiazepines). Withdrawal symptoms may require tranquilizers. AT ANY TIME, IF YOUR SYMPTOMS CHANGE SIGNIFICANTLY OR WORSEN OR YOU DEVELOP NEW SYMPTOMS, RETURN TO THE EMERGENCY DEPARTMENT IMMEDIATELY FOR RE-EVALUATION.
--- NOTE | 2019-04-28 21:22 | EKG REPORT ---
SEVERITY:- NORMAL ECG - SINUS RHYTHM : Confirmed by: Kari Porter MD 28-Apr-2019 21:21:42
--- NOTE | 2019-04-29 14:28 | ER Document Report ---
Doctor's Note Notes: 04/29/19 14:27 Evaluated pt. Pt is nontoxic, well appearing. Pt is not due for risperdal shot until May 02. Pt is possibly going to [facility] per psych team. 04/29/19 17:30 Pt is going to [facility]. They will here at 6:30pm.
[2019-04-29 17:18] VITALS: BP 128/77
--- NOTE | 2019-04-29 20:48 | PSYCHOLOGICAL NOTE ---
Psych Note - Psych Note Date seen by psych provider: 04/29/19 Time seen by psych provider: 07:35 Psych Note: Reason for Consult: SI Patient is a 59-year-old female who reports to ED via EMS with complaints of anxiety SI. Patient is well-known to clinician and behavioral health team. Patient reports "being scared and afraid I'm going to hurt myself." Patient states she is "so unstable I might walk infront of a car." Patient requested for clinician to "send me to [facility]." Patient was informed that would not be possible as patient does not meet the criteria for IVC. Patient listed off other places such as [facility], [place], and [place]. Clinician again stated that would not be possible. Patient stated she "has to get out of town" because "people are actin funny." Patient continued, "people just act mean and just don't act right." Patient would not elaborate further. Clinician offered patient an opportunity at [facility]. Patient accepted and referral was faxed with patient's consent. Patient was alert and oriented to person, place, time and situation. Mood was normal with congruent affect. There also appears to be some residual green paint on her feet, however not in her hair. Clinician notes this is generally the typical presentation for patient. This has not caused her harm or others harm. She denied current suicidal and homicidal ideation. Patient is not demonstrating any behaviours indicating she is responding to internal stimuli as evidenced by fair eye contact, answering questions appropriately when addressed, and her ability to express her needs and wants. Thought processes were linear and organized (again suggesting no psychosis). Conversational speech was within normal limits for rate, tone and prosody. Intellectual abilities are estimated to be average. attention and concentration are fair. Insight, judgment and impulse control were fair. Impression/Plan: Patient is cleared from acute psychiatric services. Patient is cleared from acute psychiatric services. Patient is not demonstrating any behaviors indicating she is responding to internal stimuli as evidenced by good eye contact, normal conversational speech, and has linear and organized thought processes. Patient is able to verbalize very clearly her thoughts of wanting to get out of town. Patient accepted voluntary placement at [facility]. It is also noted the patient is homeless in travels between [place] and [place]. Patient's presentation appears to be her baseline. Plan is for clinician to facilitate voluntary placement at [facility]. Dr. Stout was consulted on the care and management of this patient; attending physician is in agreement with recommendations.
== END 2019-04-29 18:38 | disposition home or self-care (01) ==
LOC: ER 18:13
DX: R45.851 Suicidal ideations (principal); F32.9 Major depressive disorder, single episode, unspecified; F41.9 Anxiety disorder, unspecified; F14.90 Cocaine use, unspecified, uncomplicated
CPT/HCPCS: 36415; 80053; 80307; 81001; 85025; 93005; 93010; 99285

== ENCOUNTER 2019-05-15 22:17 | Emergency (ER) | payer MEDICAID ==
--- NOTE | 2019-05-15 23:25 | ER Document Report ---
ED General - General Chief Complaint: Psych Problem Stated Complaint: HALLUCINATIONS,ANXIETY, DEPRESSION Time Seen by Provider: 05/15/19 22:58 Information source: Patient TRAVEL OUTSIDE OF THE U.[place]. IN LAST 30 DAYS: No - HPI Onset: Other - over the last few days Onset/Duration: Gradual Quality of pain: No pain Severity: Moderate Pain Level: Denies Associated symptoms: Other - patient is depressed and having thoughts of SI. Patient says she is hallucinating as well. Exacerbated by: Denies Relieved by: Denies Similar symptoms previously: Yes Recently seen / treated by doctor: No Notes: 59 year old female with a history of Depression, Bipolar, Schizophrenia here in the ER because she is hallucinating and having thoughts of killing herself. The patient told nursing and she told me her plan to harm herself is to walk into on coming traffic. The patient says she is seeing things and hearing things that are not actually there. - Related Data Allergies/Adverse Reactions: paliperidone [From Invega] Allergy (Verified 01/10/19 14:50) Past Medical History - General Information source: Patient - Social History Smoking Status: Current Some Day Smoker Frequency of alcohol use: Heavy Drug Abuse: None Family History: Reviewed & Not Pertinent Patient has suicidal ideation: Yes Patient has homicidal ideation: No Renal/ Medical History: Denies: Hx Peritoneal Dialysis Psychiatric Medical History: Reports: Hx Bipolar Disorder, Hx Depression, Hx Schizophrenia Past Surgical History: Reports: Hx Section - Immunizations Hx Diphtheria, Pertussis, Tetanus Vaccination: Yes Hx Pneumococcal Vaccination: 01/10/15 Review of Systems - Review of Systems Constitutional: No symptoms reported EENT: No symptoms reported Cardiovascular: No symptoms reported Respiratory: No symptoms reported Gastrointestinal: No symptoms reported Genitourinary: No symptoms reported Female Genitourinary: No symptoms reported Musculoskeletal: No symptoms reported Skin: No symptoms reported Hematologic/Lymphatic: No symptoms reported Neurological/Psychological: Depression, Hallucinations, Suicidal ideation -: Yes All other systems reviewed and negative Physical Exam - Vital signs Vitals: Temp Pulse Resp BP Pulse Ox 97.7 F 73 20 105/60 94 05/15/19 22:41 05/15/19 22:41 05/15/19 22:41 05/15/19 22:41 05/15/19 22:41 - Notes Notes: GENERAL: Patient has what looks like pain on her head and face. She tells me this is hair coloring but it looks like pain. Well-appearing, well-nourished and in no acute distress. HEAD: Atraumatic, normocephalic. EYES: Pupils equal round and reactive to light, extraocular movements intact, sclera anicteric, conjunctiva are normal. ENT: TMs normal, nares patent, oropharynx clear without exudates. Moist mucous membranes. NECK: Normal range of motion, supple without lymphadenopathy or JVD. LUNGS: Breath sounds clear to auscultation bilaterally and equal. No wheezes rales or rhonchi. HEART: Regular rate and rhythm without murmurs, rubs or gallops. ABDOMEN: Soft, nontender, normoactive bowel sounds. No guarding, no rebound. No masses appreciated. EXTREMITIES: Normal range of motion, no pitting or edema. No clubbing or cyanosis. NEUROLOGICAL: Cranial nerves II through XII grossly intact. Normal speech, normal gait. PSYCH: Flat affect, depressed mood. Patient is endorsing SI with a plan of walking into traffic. SKIN: Warm, Dry, normal turgor, no rashes or lesions noted. Course - Re-evaluation Re-evalutation: 05/16/19 05:34 The patient is feeling depressed and his SI with a plan to walk into oncoming traffic. The patient is medically cleared and awaiting Psych Disposition. Patient signed out to oncoming ER doctor at shift change since Psych still had not seen the patient. Patient is endorsing SI with a plan. - Vital Signs Vital signs: Temp Pulse Resp BP Pulse Ox 97.6 F 75 16 143/82 H 96 05/16/19 04:58 05/16/19 04:58 05/16/19 04:58 05/16/19 04:58 05/16/19 04:58 - Laboratory Result Diagrams: 05/15/19 23:28 05/15/19 23:28 Laboratory results interpreted by me: 05/15/19 05/15/19 23:28 23:28 Hgb 11.5 L Hct 35.6 L MCV 71 L MCH 22.8 L RDW 16.1 H Potassium 3.3 L Chloride 108 H Glucose 114 H Salicylates < 1.0 L Acetaminophen < 10 L - EKG Interpretation by Mi EKG shows normal: Sinus rhythm, Ramer, Intervals, QRS Complexes, ST-T Waves Rate: Normal Additional EKG results interpreted by me: 05/15/19 23:33 PVC noted Discharge - Discharge Clinical Impression: Hallucination, Cocaine abuse, Suicidal ideation Condition: Stable Disposition: PSYCH HOSP/UNIT
[2019-05-15 23:36] LABS: ABSOLUTE EOSINOPHILS # (AUTO) 0.1 10^3/uL (0.0-0.6); ABSOLUTE LYMPHOCYTES (AUTO) 1.9 10^3/uL (0.5-4.7); ABSOLUTE MONOCYTES (AUTO) 0.3 10^3/uL (0.1-1.4); BASOPHILS % (AUTO) 0.3 % (0-2); EOSINOPHILS % (AUTO) 1.7 % (0-6); HEMATOCRIT 35.6 % (36.0-47.0); HEMOGLOBIN 11.5 g/dL (12.0-15.5); LYMPHOCYTES % (AUTO) 35.3 % (13-45); MEAN CORPUSCULAR HEMOGLOBIN 22.8 pg (27.0-33.4); MEAN CORPUSCULAR HGB CONC 32.2 g/dL (32.0-36.0); MEAN CORPUSCULAR VOLUME 71 fl (80-97); MONOCYTES % (AUTO) 6.3 % (3-13); PLATELET COUNT 202 10^3/uL (150-450); RED BLOOD COUNT 5.04 10^6/uL (3.72-5.28); RED CELL DISTRIBUTION WIDTH 16.1 % (11.5-14.0); SEGMENTED NEUTROPHILS % (AUTO) 56.4 % (42-78); TOTAL CELLS COUNTED % (AUTO) 100 %; WHITE BLOOD COUNT 5.3 10^3/uL (4.0-10.5)
[2019-05-15 23:51] LABS: ALBUMIN 3.7 g/dL (3.5-5.0); ALCOHOL 48 mg/dL (NONE DETECTED); ALKALINE PHOSPHATASE 79 U/L (38-126); ANION GAP 10 (5-19); ASPARTATE AMINO TRANSFERASE 27 U/L (14-36); BILIRUBIN,TOTAL 0.3 mg/dL (0.2-1.3); BLOOD UREA NITROGEN 13 mg/dL (7-20); CALCIUM 8.6 mg/dL (8.4-10.2); CARBON DIOXIDE 23 mmol/L (22-30); CHLORIDE 108 mmol/L (98-107); GLUCOSE 114 mg/dL (75-110); POTASSIUM 3.3 mmol/L (3.6-5.0); TOTAL PROTEIN 6.7 g/dL (6.3-8.2)
[2019-05-15 23:55] LABS: ACETAMINOPHEN < 10 ug/mL (10-30); SALICYLATE < 1.0 mg/dL (2.0-20.0)
[2019-05-16 04:41] LABS: APPEARANCE,URINE SLIGHTLY-CLOUDY; BILIRUBIN,URINE NEGATIVE (NEGATIVE); COLOR,URINE YELLOW; GLUCOSE, URINE NEGATIVE (NEGATIVE); KETONES,URINE NEGATIVE (NEGATIVE); LEUKOCYTE ESTERASE,URINE NEGATIVE (NEGATIVE); NITRITE,URINE NEGATIVE (NEGATIVE); PROTEIN,URINE NEGATIVE (NEGATIVE); URINE SPECIFIC GRAVITY 1.025; UROBILINOGEN,URINE NEGATIVE mg/dL (<2.0)
[2019-05-16 04:56] LABS: URINE AMPHETAMINES SCREEN NEGATIVE; URINE BARBITURATES SCREEN NEGATIVE; URINE BENZODIAZEPINES SCREEN NEGATIVE; URINE COCAINE SCREEN UNCONFIRMED POSITIVE; URINE MARIJUANA (THC) SCREEN NEGATIVE; URINE METHADONE SCREEN NEGATIVE; URINE PHENCYCLIDINE SCREEN NEGATIVE
[2019-05-16] MEDS ORDERED: POTASSIUM CHLORIDE 10 MEQ TABLET.ER PO ONE (05:34)
--- NOTE | 2019-05-16 12:03 | PSYCHOLOGICAL NOTE ---
Psych Note - Psych Note Date seen by psych provider: 05/16/19 Time seen by psych provider: 09:05 Psych Note: Reason for Consult: Depression Patient reports she came into [facility] ED because she was "afraid and scared." She states she feels "much better" and wants to "go home." She denies any thoughts of wanting to hurt herself or others. Patient was alert and oriented to person, place, time and situation. Mood was euthymic with congruent affect as evidenced by smiling, laughing and engaging with clinician. Patient is noted to have some residual red paint in her hair; this has been noted numerous previous visits. Clinician notes this is normal physical presentation for patient; she frequently has paint on her hair. This has not caused her harm or others harm. She denied current suicidal and homicidal ideation. Patient is not demonstrating any behaviours indicating she is responding to internal stimuli as evidenced by fair eye contact, answering questions appropriately when addressed, and her ability to express her needs and wants. Thought processes were linear and organized (again suggesting no psychosis). Conversational speech was within normal limits for rate, tone and prosody. Intellectual abilities are estimated to be average. attention and con centration are fair. Insight, judgment and impulse control were fair. 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 Patient does not meet IVC criteria per [place] GS 122C. She is not demonstrating any behaviors indicating she is responding to internal stimuli i.e. she makes good eye contact, she has normal conversational speech, and has linear and organized thought processes. Patient is able to verbalize very clearly her thoughts and states she no longer feels scared. Patient declines assistance for sobriety from alcohol and cocaine; this is a long-standing addiction for this patient. It is also noted the patient is homeless in travels between [place] and [place]. Clinician notes patient appears to have paint in her hair, this is a frequent occurrence as the patient has been seen on multiple occasions and appears to be her baseline physical presentation. When asked she reports that she paints her hair to dye it and reports she wears it as makeup. Dr. Stout was consulted on the care and management of this patient; attending physician is in agreement with recommendations.
--- NOTE | 2019-05-16 12:19 | ER Document Report ---
Doctor's Note Notes: 05/16/19 12:18 Progress note for today: Reevaluation of the patient at this time shows her to be stable. Her vitals are within normal limits. Her previous work-up shows her to be hemodynamically stable. She has no complaints at this time. She has spoken with psychiatry/mental health and states she is no longer suicidal. She does not desire to walk into traffic anymore. She has no complaints and states she is ready for discharge. Psychiatry has rescinded her IVC and they report that she is appropriate for discharge. Patient denies any further hallucinations or delusions. Discussed the case with Dr. Sheldon who agrees with plan from psychiatry.
[2019-05-16 12:21] VITALS: BP 120/60
--- NOTE | 2019-05-16 16:17 | EKG REPORT ---
SEVERITY:- OTHERWISE NORMAL ECG - SINUS RHYTHM VENTRICULAR PREMATURE COMPLEX : Confirmed by: Kari Porter MD 16-May-2019 16:17:16
== END 2019-05-16 12:46 | disposition home or self-care (01) ==
LOC: ER 22:17
DX: R44.3 Hallucinations, unspecified (principal); R45.851 Suicidal ideations; F14.10 Cocaine abuse, uncomplicated; F17.200 Nicotine dependence, unspecified, uncomplicated
CPT/HCPCS: 36415; 80053; 80307; 81001; 85025; 93005; 93010; 99285

== ENCOUNTER 2019-07-24 21:58 | Emergency (ER) | payer MEDICAID, OTHER ==
--- NOTE | 2019-07-24 22:52 | ER Document Report ---
ED Psych Disorder / Suicide - General Chief Complaint: Suicidal Ideation Stated Complaint: DESPRESSION, PSYCH EVAL Time Seen by Provider: 07/24/19 22:42 Mode of Arrival: Medic Information source: Patient Notes: Patient is a 59-year-old female with history of bipolar, depression and schizophrenia. Patient presents via EMS with complaints of suicidal ideations. Patient reports she has been thinking about jumping in front of traffic. She also reports homicidal thoughts, states that she does not have any particular person that she would like to harm but has thought about harming people. She states she has been off of her mental health medications for at least 3 to 4 weeks. She denies any physical complaints today. TRAVEL OUTSIDE OF THE [place] IN LAST 30 DAYS: No - Related Data Allergies/Adverse Reactions: paliperidone [From [employer]] Allergy (Verified 01/10/19 14:50) Past Medical History - General Information source: Patient - Social History Smoking Status: Unknown if Ever Smoked Frequency of alcohol use: Occasional Drug Abuse: Cocaine Family History: Reviewed & Not Pertinent Patient has suicidal ideation: Yes Patient has homicidal ideation: No Renal/ Medical History: Denies: Hx Peritoneal Dialysis Psychiatric Medical History: Reports: Hx Bipolar Disorder, Hx Depression, Hx Schizophrenia Past Surgical History: Reports: Hx Section - Immunizations Hx Diphtheria, Pertussis, Tetanus Vaccination: Yes Hx Pneumococcal Vaccination: 01/10/15 Review of Systems - Review of Systems Neurological/Psychological: Depression, Suicidal ideation -: Yes All other systems reviewed and negative Physical Exam - Vital signs Vitals: Temp Pulse Resp BP Pulse Ox 98.6 F 88 16 132/72 H 100 07/24/19 22:18 07/24/19 22:18 07/24/19 22:18 07/24/19 22:18 07/24/19 22:18 - Notes Notes: PHYSICAL EXAMINATION: GENERAL: Well-appearing, well-nourished and in no acute distress. HEAD: Atraumatic, normocephalic. EYES: Pupils equal round and reactive to light, extraocular movements intact, conjunctiva are normal. ENT: Nares patent, oropharynx clear without exudates. Moist mucous membranes. NECK: Normal range of motion, supple without lymphadenopathy LUNGS: Breath sounds clear to auscultation bilaterally and equal. No wheezes rales or rhonchi. HEART: Regular rate and rhythm without murmurs ABDOMEN: Soft, nontender, nondistended abdomen. No guarding, no rebound. No masses appreciated. Female : deferred Musculoskeletal: Normal range of motion, no pitting or edema. No cyanosis. NEUROLOGICAL: Cranial nerves grossly intact. Normal speech, normal gait. Normal sensory, motor exams PSYCH: Flat affect. Cooperative. SKIN: Warm, Dry, normal turgor, no rashes or lesions noted. Course - Re-evaluation Re-evalutation: Laboratory 07/24/19 07/24/19 07/24/19 22:30 22:30 22:55 WBC 6.7 RBC 4.88 Hgb 11.3 L Hct 34.0 L MCV 70 L MCH 23.2 L MCHC 33.2 RDW 16.2 H Plt Count 202 Lymph % (Auto) 34.4 Dickey % (Auto) 5.8 Eos % (Auto) 1.0 Baso % (Auto) 0.3 Absolute Neuts (auto) 3.9 Absolute Lymphs (auto) 2.3 Absolute Monos (auto) 0.4 Absolute Eos (auto) 0.1 Absolute Basos (auto) 0.0 Seg Neutrophils % 58.5 Sodium Potassium Chloride Carbon Dioxide Anion Gap BUN Creatinine Est GFR ( Amer) Est GFR (MDRD) Non-Af Glucose Calcium Total Bilirubin Direct Bilirubin Neonat Total Bilirubin Neonat Direct Bilirubin Neonat Indirect Bili AST ALT Alkaline Phosphatase Total Protein Albumin Urine Color YELLOW Urine Appearance CLEAR Urine pH 5.0 Ur Specific [place] 1.011 Urine Protein NEGATIVE Urine Glucose (UA) NEGATIVE Urine Ketones NEGATIVE Urine Blood NEGATIVE Urine Nitrite NEGATIVE Urine Bilirubin NEGATIVE Urine Urobilinogen 2.0 H Ur Leukocyte Esterase NEGATIVE Urine WBC (Auto) 1 Urine RBC (Auto) 1 Urine Bacteria (Auto) TRACE Squamous Epi Cells Auto 2 Urine Mucus (Auto) OCC Urine Ascorbic Acid NEGATIVE Salicylates Urine Opiates Screen NEGATIVE Urine Methadone Screen NEGATIVE Acetaminophen Ur Barbiturates Screen NEGATIVE Ur Phencyclidine Scrn NEGATIVE Ur Amphetamines Screen NEGATIVE U Benzodiazepines Scrn NEGATIVE Urine Cocaine Screen UNCONFIRMED POSITIVE U Marijuana (THC) Screen NEGATIVE Serum Alcohol 07/24/19 22:55 WBC RBC Hgb Hct MCV MCH MCHC RDW Plt Count Lymph % (Auto) Dickey % (Auto) Eos % (Auto) Baso % (Auto) Absolute Neuts (auto) Absolute Lymphs (auto) Absolute Monos (auto) Absolute Eos (auto) Absolute Basos (auto) Seg Neutrophils % Sodium 137.7 Potassium 3.4 L Chloride 105 Carbon Dioxide 24 Anion Gap 9 BUN 8 Creatinine 0.87 Est GFR ( Amer) > 60 Est GFR (MDRD) Non-Af > 60 Glucose 126 H Calcium 8.5 Total Bilirubin 0.6 Direct Bilirubin 0.0 Neonat Total Bilirubin Not Reportable Neonat Direct Bilirubin Not Reportable Neonat Indirect Bili Not Reportable AST 27 ALT 17 Alkaline Phosphatase 78 Total Protein 7.2 Albumin 4.0 Urine Color Urine Appearance Urine pH Ur Specific [place] Urine Protein Urine Glucose (UA) Urine Ketones Urine Blood Urine Nitrite Urine Bilirubin Urine Urobilinogen Ur Leukocyte Esterase Urine WBC (Auto) Urine RBC (Auto) Urine Bacteria (Auto) Squamous Epi Cells Auto Urine Mucus (Auto) Urine Ascorbic Acid Salicylates < 1.0 L Urine Opiates Screen Urine Methadone Screen Acetaminophen < 10 L Ur Barbiturates Screen Ur Phencyclidine Scrn Ur Amphetamines Screen U Benzodiazepines Scrn Urine Cocaine Screen U Marijuana (THC) Screen Serum Alcohol 93 Lab work and EKG reviewed. EKG shows a sinus rhythm, normal axis, no ST segment elevation or depression to suggest ischemia. Patient resting comfortably in room. She is medically cleared at this time pending psych consult in the morning. - Vital Signs Vital signs: Temp Pulse Resp BP Pulse Ox 98.6 F 88 16 132/72 H 100 07/24/19 22:18 07/24/19 22:18 07/24/19 22:18 07/24/19 22:18 07/24/19 22:18 - Laboratory Result Diagrams: 07/24/19 22:55 07/24/19 22:55 Laboratory results interpreted by me: 07/24/19 07/24/19 07/24/19 22:30 22:55 22:55 Hgb 11.3 L Hct 34.0 L MCV 70 L MCH 23.2 L RDW 16.2 H Potassium 3.4 L Glucose 126 H Urine Urobilinogen 2.0 H Salicylates < 1.0 L Acetaminophen < 10 L Discharge - Discharge Clinical Impression: Suicidal ideation, Cocaine abuse Depression Qualifiers: Depression Type: unspecified Qualified Code(s): F32.9 - Major depressive disorder, single episode, unspecified Condition: Stable Disposition: PSYCH HOSP/UNIT
[2019-07-24 22:58] LABS: APPEARANCE,URINE CLEAR; BILIRUBIN,URINE NEGATIVE (NEGATIVE); COLOR,URINE YELLOW; GLUCOSE, URINE NEGATIVE (NEGATIVE); KETONES,URINE NEGATIVE (NEGATIVE); LEUKOCYTE ESTERASE,URINE NEGATIVE (NEGATIVE); NITRITE,URINE NEGATIVE (NEGATIVE); PROTEIN,URINE NEGATIVE (NEGATIVE); URINE SPECIFIC GRAVITY 1.011
[2019-07-24 23:12] LABS: URINE AMPHETAMINES SCREEN NEGATIVE; URINE BARBITURATES SCREEN NEGATIVE; URINE BENZODIAZEPINES SCREEN NEGATIVE; URINE MARIJUANA (THC) SCREEN NEGATIVE; URINE METHADONE SCREEN NEGATIVE; URINE PHENCYCLIDINE SCREEN NEGATIVE
[2019-07-24 23:13] LABS: ABSOLUTE EOSINOPHILS # (AUTO) 0.1 10^3/uL (0.0-0.6); ABSOLUTE LYMPHOCYTES (AUTO) 2.3 10^3/uL (0.5-4.7); ABSOLUTE MONOCYTES (AUTO) 0.4 10^3/uL (0.1-1.4); ABSOLUTE NEUT (AUTO) 3.9 10^3/uL (1.7-8.2); BASOPHILS % (AUTO) 0.3 % (0-2); HEMOGLOBIN 11.3 g/dL (12.0-15.5); LYMPHOCYTES % (AUTO) 34.4 % (13-45); MEAN CORPUSCULAR HEMOGLOBIN 23.2 pg (27.0-33.4); MEAN CORPUSCULAR HGB CONC 33.2 g/dL (32.0-36.0); MEAN CORPUSCULAR VOLUME 70 fl (80-97); MONOCYTES % (AUTO) 5.8 % (3-13); PLATELET COUNT 202 10^3/uL (150-450); RED BLOOD COUNT 4.88 10^6/uL (3.72-5.28); RED CELL DISTRIBUTION WIDTH 16.2 % (11.5-14.0); SEGMENTED NEUTROPHILS % (AUTO) 58.5 % (42-78); TOTAL CELLS COUNTED % (AUTO) 100 %; WHITE BLOOD COUNT 6.7 10^3/uL (4.0-10.5)
[2019-07-24 23:14] LABS: URINE COCAINE SCREEN UNCONFIRMED POSITIVE
[2019-07-24 23:23] LABS: ALCOHOL 93 mg/dL (NONE DETECTED); ALKALINE PHOSPHATASE 78 U/L (38-126); ANION GAP 9 (5-19); ASPARTATE AMINO TRANSFERASE 27 U/L (14-36); BILIRUBIN,TOTAL 0.6 mg/dL (0.2-1.3); BLOOD UREA NITROGEN 8 mg/dL (7-20); CALCIUM 8.5 mg/dL (8.4-10.2); CARBON DIOXIDE 24 mmol/L (22-30); CHLORIDE 105 mmol/L (98-107); GLUCOSE 126 mg/dL (75-110); POTASSIUM 3.4 mmol/L (3.6-5.0); TOTAL PROTEIN 7.2 g/dL (6.3-8.2)
[2019-07-24 23:24] LABS: ACETAMINOPHEN < 10 ug/mL (10-30); SALICYLATE < 1.0 mg/dL (2.0-20.0)
--- NOTE | 2019-07-25 07:39 | EKG REPORT ---
SEVERITY:- NORMAL ECG - SINUS RHYTHM : Confirmed by: Sanket Cerrato MD 25-Jul-2019 07:38:42
--- NOTE | 2019-07-25 14:57 | ER Document Report ---
Doctor's Note Notes: 07/25/19 14:55 PHYSICAL EXAMINATION: GENERAL: Appears well, healthy, well-nourished, no acute distress. LUNGS: Equal breath sounds bilaterally and clear to auscultation. No wheezes rales or rhonchi. CARDIOVASCULAR: S1-S2, regular rate, regular rhythm. Radial pulses 2+, normal. ABDOMEN: Normoactive bowel sounds. Soft, nontender, no guarding, no rebound tenderness, and no masses palpated. PSYCH: Normal mood, normal affect. Patient states that she still feels suicidal. States that she wants to walk in front of a car. Mental health has requested that the patient go to [facility]. Patient states that she will go there. Mental health reports to me that the patient is homeless. Patient has agreed to walk herself over to [facility]. Follow-up precautions were given. Verbal discharge instructions were given to the patient. They verbalized understanding. They are stable for discharge.
[2019-07-25 15:45] VITALS: BP 129/71
--- NOTE | 2019-07-25 16:26 | PSYCHOLOGICAL NOTE ---
Psych Note - Psych Note Date seen by psych provider: 07/25/19 Time seen by psych provider: 13:20 Psych Note: Reason for Consult: Suicidal ideation Patient reports the holiday has made her "depressed and nervous." She reports "psychotic help...I am not doing good....socializing, I need to go to that place for extra help. People are so mean...I am not doing good out there." Patient reports passive suicidal ideation ie no plans means or intent. Patient confirms she is goes to [facility] for her medications. Patient reports she has been to [facility] and states "I was told I could come back if I feel bad." Patient is alert and orientated to person, place, time and circumstance. Patient's mood is euthymic with congruent affect as evidenced by smiling and engaging with clinician. Patient reports chronic passive suicidal ideation that historically is connected to her socioeconomic needs. She denies homicidal ideation. Patient is noted to have blue paint on on her eyebrows as if it is eye shadow. Clinician notes this is normal physical presentation for patient; she frequently has paint on her hair and as makeup. This has not caused her harm or others harm. Patient is not demonstrating any behaviours indicating she is responding to internal stimuli as evidenced by fair eye contact, answering questions appropriately when addressed, and her ability to express her needs and wants. Thought processes were linear and organized (again suggesting no psychosis). Conversational speech was within normal limits for rate, tone and prosody. Intellectual abilities are estimated to be average. attention and concentration are fair. Insight, judgment and impulse control were fair. 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 Patient does not meet IVC criteria per [place] GS 122C. She is not demonstrating any behavio rs indicating she is responding to internal stimuli i.e. she makes good eye contact, she has normal conversational speech, and has linear and organized thought processes. Patient is able to verbalize very clearly her thoughts of wanting to go inpatient treatment. Patient has a long-standing addiction to alcohol and cocaine and suffers from chronic homelessness. She travels between [place] and [place]. Clinician notes patient appears to have blue paint over her eyelids, as if it was eye shadow. This is a frequent occurrence as the patient has been seen on multiple occasions and appears to be her baseline physical presentation. Patient confirms she would like to walk over to [facility] for voluntary placement. Patient has an outpatient mental health and substance abuse provider with [facility]. Patient is reminded the importance of outpatient therapeutic services to build daily living and coping skills. Dr. Stout was consulted on the care and management of this patient; attending physician is in agreement with recommendations.
== END 2019-07-25 15:35 | disposition home or self-care (01) ==
LOC: ER 21:58
DX: R45.851 Suicidal ideations (principal); F14.10 Cocaine abuse, uncomplicated; F32.9 Major depressive disorder, single episode, unspecified
CPT/HCPCS: 36415; 80053; 80307; 81001; 85025; 93005; 93010; 99285